=== PATIENT | male | born 1965 | race Caucasian/White ===

== ENCOUNTER 2023-08-13 10:52 | Emergency (ER) | payer SELFPAY ==
[2023-08-13] VITALS (36 sets, daily range): BP systolic 117–153; BP diastolic 68–99; PULSE 57–86; TEMP 36.4; O2SAT 97–100; BMI 41.3
--- NOTE | 2023-08-13 11:10 | XR_ITS ---
The [address] [address] Patient Name: LAURITA BUSTAMANTE MRN: [id number] date: 1965 Sex: M Assigned Patient Location: ED.MAIN Current Patient Location: ER Accession/Order Number: [id number] Exam Date: 08/13/2023 11:45 Report Date: 08/13/2023 13:00 At the request of: LD CHILDRESS Procedure: XR chest 1V EXAM: XR chest 1V 08/13/2023. COMPARISON STUDY: None FINDINGS: Upright AP lordotic type image was obtained of this severely obese patient. HISTORY: Edema COMPARISON: None. XR/XR chest 1V IMPRESSION: 1. Severe morbid obesity. Heart size is top normal. 2. Lung curry are grossly clear with no dense consolidation, effusion, edema, failure or pneumothorax within limits of study. No acute osseous abnormality otherwise noted. Electronically authenticated by: BRANDON CORREA Date: 08/13/2023 13:00
--- NOTE | 2023-08-13 11:25 | CT_ITS ---
The [address] [address] Patient Name: LAURITA BUSTAMANTE MRN: [facility]:[id number] date: 1965 Sex: M Assigned Patient Location: ER Current Patient Location: ER Accession/Order Number: [id number] Exam Date: 08/13/2023 12:46 Report Date: 08/13/2023 13:47 At the request of: LD CHILDRESS Procedure: CT abdomen pelvis w con EXAM: CT abdomen pelvis w con 08/13/2023. HISTORY: Ascites COMPARISON STUDY: None TECHNIQUE: 3 mm sections were obtained from the lung bases through the pubic symphysis following administration of intravenous contrast. Coronal and sagittal reconstructed images were obtained CT ABDOMEN: Patient is severely obese. Small left-sided pleural effusion and moderate-sized right pleural effusion with adjacent compressive atelectatic changes noted. Heart size is top normal. Small reactive bilateral mildly prominent epicardial nodes are evident. Mass in volume of ascites and severe anasarca noted. Cirrhotic change of the liver without discrete mass noted. Spleen measures 15.8 cm superior to inferior. The right hepatic lobe measures 12.9 cm superior to inferior. Portal, splenic and mesenteric veins are patent. Distal esophageal and perigastric varices as well as additional intra-abdominal collateral formation is noted. The gallbladder, pancreas, adrenals and kidneys demonstrate no acute abnormality. A midpole right renal cyst posteriorly measures 10 mm. Aorta is nonaneurysmal. Mild colonic diverticular disease is noted. Mild gaseous distention of the transverse segment of the colon noted. Negative for appendicitis or diverticulitis. Prominent perisplenic varices are present. CT PELVIS: Urinary bladder, prostate and seminal vesicles demonstrate no acute abnormality. No significantly enlarged adenopathy noted. Subacute fracture deformities of the anterior right fourth through sixth ribs as well as involving lateral fifth and ninth ribs noted. Multilevel thoracic and lumbar Schmorl's node formation noted. Prior removal of intramedullary william from proximal left femur with old healed fracture deformity partially visualized. CT/CT abdomen pelvis w con IMPRESSION: 1. Bilateral pleural effusions, right larger than left with adjacent compressive atelectasis. 2. Massive volume of ascites and severe anasarca noted. 3. Cirrhotic change of liver without discrete mass. 4. Stigmata of portal hypertension with distal esophageal and perigastric as well as perisplenic varices and additional abdominal collaterals noted. Mild splenomegaly. 5. Nonobstructive bowel pattern with mild diverticular disease. 6. Subacute healing nondisplaced multiple right-sided rib fractures as described Electronically authenticated by: BRANDON CORREA Date: 08/13/2023 13:47
--- NOTE | 2023-08-13 11:25 | CT_ITS ---
[address] [address] Patient Name: LAURITA BUSTAMANTE MRN: [id number] date: 1965 Sex: M Assigned Patient Location: ER Current Patient Location: ER Accession/Order Number: [id number] Exam Date: 08/13/2023 12:46 Report Date: 08/13/2023 13:36 At the request of: LD CHILDRESS Procedure: CT angio chest EXAMINATION: CT angio chest INDICATION: Increased bilateral leg swelling and wheezing COMPARISON: None. TECHNIQUE: Following the administration of intravenous contrast, helical imaging of the chest was performed using PE protocol. Multiplanar reformatted images and MIP sequences were reconstructed. Dose reduction techniques were achieved by using: automated exposure control and/or adjustment of mA and /or kV according to patient size and/or use of iterative reconstruction technique. FINDINGS: TUBES AND LINES: None. LOWER NECK: No significant abnormality. CHEST: AIRWAYS, LUNGS AND PLEURA: Patent central airways. Large right and small left pleural effusions. Bilateral lower lobe compressive atelectasis. No acute infiltrative process. No suspicious pulmonary nodules. No pneumothorax. LYMPH NODES: No thoracic adenopathy. ESOPHAGUS: Normal esophagus. GREAT VESSELS: Nondiagnostic study for PE due to minimal opacification of the pulmonary arteries. Normal caliber main pulmonary artery. Nonaneurysmal thoracic aorta. No aortic dissection. HEART AND PERICARDIUM: The heart is normal in size. Mild coronary artery calcifications. No pericardial effusion. UPPER ABDOMEN: Abdominal findings reported separately. MUSCULOSKELETAL: SOFT TISSUES: Anasarca. BONES: No acute osseous abnormality or suspicious osseous lesion. OSULLIVAN: (series:images) CT/CT angio chest IMPRESSION: 1. Nondiagnostic study for PE due to minimal opacification of the pulmonary arteries. 2. Large right and small left pleural effusions. Electronically authenticated by: SHIRLEY QUINONES Date: 08/13/2023 13:36
--- NOTE | 2023-08-13 11:29 | ED_ITS ---
HPI HPI - General Adult General Chief complaint: Weakness Stated complaint: swelling legs Time Seen by Provider: 08/13/23 11:10 Source: patient Mode of arrival: ambulance Limitations: no limitations History of Present Illness HPI narrative: This patient was brought to us by ambulance. He says he could not get out of bed. He says his legs are too swollen to have any did not have the strength to stand up. He is somewhat of a limited historian. 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 He states he is known to have diabetes and takes metformin but no insulin. He used to drink when he was much younger but did not drink heavily and that was many many many years ago. He has no known history of liver disease ,lung disease or heart disease he has been feeling bad for about 3 weeks when he noticed that his belly was getting big and his legs were getting swollen. He gets short of breath pretty easily. He does not use any tobacco products and never has. He has not had a heart catheterization or pulmonary function test in the past. He says his appetite is good and he has been eating normally. He is not on any antibiotics. His only home meds include metformin. 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 His sister sees him occasionally and she is here with him today. He admits to swelling from his toes all the way up to his scrotum. He denies any specific problems urinating Related Data Home Medications ?Medication ?Instructions ?Recorded ?Confirmed metformin 500 mg tablet 500 mg PO DAILY 08/13/23 08/13/23 Allergies Allergy/AdvReac Type Severity Reaction Status Date / Time Penicillins AdvReac Mild Verified 08/13/23 10:59 Opioid HPI Opioid Management Most Recent Opioid Data: No Data to Display Exam Narrative Exam Narrative: This is a 57-year-old male he is quite obese but also has what appears to be ascites on his abdominal exam. He appears well but older than stated age. His vital signs are noted. His pulse oximetry is 100% he is not in labor distress. He does not appear to be having severe pain but he does appear ill. On HEENT examination there is no evidence of scleral icterus or anemia. Mouth and oral cavity are normal. There is no respiratory distress or stridor air exchange is good. Phonation is normal. Examination of his chest discloses no obvious murmur. No wheezing no respiratory distress. Heart sounds are normal with no murmur as noted. He is not profoundly tachycardic his pulse is approximately 80. His abdomen is morbidly obese and felt to hold profound amount of ascites. Has no guarding or rebound or rigidity. Genitalia discloses massive ascites from his ankles up to his scrotum. We could not identify the shaft of the penis. With palpitation I was able to palpate with my digital finger the glans of the penis but could not pass a Carrillo catheter to determine the presence of urinary retention. Scrotum is massively edematous there is no necrosis noted. Hygiene is not good in this area and this appears to be chronic in nature. Extremities show 3-4+ edema from distal ankle to the scrotum area. They are warm with no cyanosis. He has full movement with no gross motor deficit but they are extremely edematous and feel very heavy to him. Neurological examination shows him to be intact cognition mentation normal cranial nerves II through XII are normal. He does not have a headache. Constitutional Vital Signs, click to edit/add: Last Vital Signs Temp 97.6 F 08/13/23 10:59 Pulse 75 08/13/23 14:00 Resp 16 08/13/23 14:00 BP 127/68 08/13/23 13:30 Pulse Ox 100 08/13/23 13:40 O2 Del Method Room Air 08/13/23 10:59 Course Vital Signs Vital signs: Vital Signs Blood Pressure 119/99 H 08/13/23 10:54 Temperature 97.6 F 08/13/23 10:59 Pulse Rate 75 08/13/23 14:00 Respiratory Rate 16 08/13/23 14:00 Blood Pressure 127/68 08/13/23 13:30 Pulse Oximetry 100 08/13/23 13:40 Oxygen Delivery Method Room Air 08/13/23 10:59 Medical Decision Making [facility] Narrative Medical decision making narrative: On arrival here we asked him to void and then we scanned his bladder. Reading we received was 1300 cc of retained urine. We did order a Carrillo catheter by the nursing staff holiday however they were unable to pass it. I then attempted myself and as noted above in the physical examination it was difficult due to the ascites to locate the urethral meatus and the penis because of the profound amount of swelling and ascites in this area. This patient's laboratory testing shows mild elevation potassium. Also there is marked irregularities of his ammonia level and liver function testing is abnormal as well. D-dimer was elevated so we will entertain a CTA of his chest although I believe his primary problem will be liver disease and lieu of his ascites and liver function testing. In fact his CT scan of the chest shows bilateral pleural effusions. The CT of the abdomen shows findings consistent with portal hypertension severe amount of ascites bilateral pleural effusions. There is no pericardial effusion. There is no liver masses delineated. There was no distention of his bladder, and is felt that the bladder scan reading is due to the profound ascites. Incidentally I did speak with Dr. Salazar Lynn urologist and he agrees with that assessment of it being due to the ascites and not urinary retention. When the liver testing and CTs were completed I contacted the hospitals in [place] as I felt he needed to be transferred to that facility to address the severe problems. Full report and disclosure of the laboratory testing CT imaging was made. We will start diuresis here in the ER. Lab Data Labs: Lab Results 08/13/23 08/13/23 Range/Units 11:40 14:02 WBC 10.9 (4.0-11.0) 10^3/uL RBC 3.95 L (4.70-6.10) 10^6/uL Hgb 14.0 (14.0-18.0) g/dL Hct 41.8 L (42.0-54.0) % MCV 105.8 H (80.0-94.0) fL MCH 35.4 H (25.9-34.0) pg MCHC 33.5 (29.9-35.2) g/dL RDW 14.8 (11.0-15.0) % Plt Count 153 (150-450) 10^3/uL MPV 9.4 L (9.5-13.5) fL Neut % (Auto) 65.0 (43.0-75.0) % Lymph % (Auto) 12.2 L (20.5-60.0) % [place] % (Auto) 13.3 H (1.7-12.0) % Eos % (Auto) 7.1 H (0.9-7.0) % Baso % (Auto) 1.4 (0.2-2.0) % Neut # (Auto) 7.1 H (1.4-6.5) 10^3/uL Lymph # (Auto) 1.3 (1.2-3.8) 10^3/uL Gladwin # (Auto) 1.5 H (0.3-0.8) 10^3/uL Eos # (Auto) 0.8 H (0.0-0.7) 10^3/uL Baso # (Auto) 0.2 H (0.0-0.1) 10^3/uL Abs Immat Gran (auto) 0.11 H (0.00-0.03) 10^3/uL Imm/Tot Granulo (auto) 1.0 H (0.0-0.5) % PT 13.5 H (9.0-11.6) sec INR 1.29 D-Dimer 5.35 H* (<=0.59) mg/L FEU VBG pH 7.404 (7.330-7.430) VBG pCO2 37.1 L (40.0-52.0) mmHg Sodium 136 (136-145) mmol/L Potassium 5.2 H (3.5-5.1) mmol/L Chloride 103 (98-107) mmol/L Carbon Dioxide 24.0 (21.0-32.0) mmol/L Anion Gap 14.2 BUN 37.0 H (7.0-18.0) mg/dL Creatinine 1.34 H (0.70-1.30) mg/dL Est GFR ( Amer) >60 (>=60) Est GFR (Non-Af Amer) 55 L (>=60) BUN/Creatinine Ratio 27.6 Glucose 103 (74-106) mg/dL Lactate 3.0 H* (0.4-2.0) mmol/L Calcium 8.7 (8.5-10.1) mg/dL Total Bilirubin 4.8 H (0.2-1.0) mg/dL AST 84 H (15-37) U/L ALT 52 (16-63) U/L Alkaline Phosphatase 287 H (46-116) U/L Ammonia 87 H* (11-32) umol/L Troponin I High Sens 4.9 (4.0-76.1) pg/mL NT-Pro-B Natriuret Pep 190.0 (<=900.0) pg/mL Total Protein 6.6 (6.4-8.2) g/dL Albumin 2.5 L (3.4-5.0) g/dL Globulin 4.1 g/dL Albumin/Globulin Ratio 0.6 Lipase 91.0 H (16.0-77.0) U/L Discharge Plan Discharge Chief Complaint: Weakness Clinical Impression: 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 alcohol Patient Disposition: [facility] Time of Disposition Decision: 15:08 Condition: Fair Prescriptions / Home Meds: No Action metformin 500 mg tablet 500 mg PO DAILY Print Language: Turkmen Referrals: JANNA LEBRON [Primary Care Provider] - 1 week
[2023-08-13 11:49] LABS: PCO2 VBG 37.1 mmHg (40.0-52.0); pH VBG 7.404 (7.330-7.430)
[2023-08-13 11:51] LABS: Basophils Absolute Auto 0.2 10^3/uL (0.0-0.1); Basophils Percent Auto 1.4 % (0.2-2.0); Eosinophils Absolute Auto 0.8 10^3/uL (0.0-0.7); Eosinophils Percent Auto 7.1 % (0.9-7.0); Hematocrit 41.8 % (42.0-54.0); Immature Granulocytes Abs Auto 0.11 10^3/uL (0.00-0.03); Lymphocytes Absolute Auto 1.3 10^3/uL (1.2-3.8); Lymphocytes Percent Auto 12.2 % (20.5-60.0); Mean Corpuscular HGB Conc 33.5 g/dL (29.9-35.2); Mean Corpuscular Hemoglobin 35.4 pg (25.9-34.0); Mean Corpuscular Volume 105.8 fL (80.0-94.0); Mean Platelet Volume 9.4 fL (9.5-13.5); Monocytes Absolute Auto 1.5 10^3/uL (0.3-0.8); Monocytes Percent Auto 13.3 % (1.7-12.0); Neutrophils Absolute Auto 7.1 10^3/uL (1.4-6.5); Platelet Count 153 10^3/uL (150-450); Red Blood Count 3.95 10^6/uL (4.70-6.10); Red Cell Distribution Width 14.8 % (11.0-15.0); White Blood Count 10.9 10^3/uL (4.0-11.0)
[2023-08-13 12:15] LABS: Alanine Aminotransferase 52 U/L (16-63); Albumin Globulin Ratio 0.6; Albumin Level 2.5 g/dL (3.4-5.0); Alkaline Phosphatase 287 U/L (46-116); Anion Gap 14.2; Aspartate Amino Transferase 84 U/L (15-37); BUN Creatinine Ratio 27.6; Bilirubin Total 4.8 mg/dL (0.2-1.0); Calcium 8.7 mg/dL (8.5-10.1); Chloride 103 mmol/L (98-107); Estimated GFR (African America >60 (>=60); Estimated GFR (Non-African Ame 55 (>=60); Globulin 4.1 g/dL; Glucose 103 mg/dL (74-106); Potassium 5.2 mmol/L (3.5-5.1); Sodium 136 mmol/L (136-145); Total Protein 6.6 g/dL (6.4-8.2); Troponin I High Sensitivity 4.9 pg/mL (4.0-76.1)
[2023-08-13 12:27] LABS: INR 1.29; Prothrombin Time 13.5 sec (9.0-11.6)
[2023-08-13 12:31] LABS: D Dimer 5.35 mg/L FEU (<=0.59)
--- NOTE | 2023-08-13 13:53 | ECG_ITS ---
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
[2023-08-13 14:21] LABS: Ammonia 87 umol/L (11-32)
[2023-08-13] MEDS: BUMETANIDE 1 MG/4 ML VIAL 2 MG IVP (16:01)
== END 2023-08-13 16:23 | disposition short-term general hospital (02) ==
PROVIDERS: Emergency Provider Emergency Medicine Emergency Medical Services; PCP Internal Medicine
DX: K74.60 Unspecified cirrhosis of liver (principal); E11.9 Type 2 diabetes mellitus without complications; Z79.84 Long term (current) use of oral hypoglycemic drugs; E66.01 Morbid (severe) obesity due to excess calories; R79.1 Abnormal coagulation profile; Z68.41 Body mass index [BMI] 40.0-44.9, adult
CPT/HCPCS: 36415; 51798; 71045; 71275; 74177; 80053; 82140; 82800; 83605; 83690; 83880; 84484; 85025; 85378; 85610; 87040; 93005; 96374; 99285; Q9967

== ENCOUNTER 2023-09-18 19:50 | Inpatient (IN) | payer MEDICAID, SELFPAY ==
[2023-09-18] VITALS (17 sets, daily range): BP systolic 102–149; BP diastolic 56–92; PULSE 75–88; TEMP 36.9; O2SAT 97–100; BMI 44.3
--- NOTE | 2023-09-18 20:10 | PC.NURSE ---
Pain and swelling to left lower leg, reports pain from foot to thigh. Skin pale, no redness noted, pulse present posterior with doppler.
--- NOTE | 2023-09-18 20:13 | US_ITS ---
The [address] [address] Patient Name: LAURITA BUSTAMANTE MRN: [id number] date: 1965 Sex: M Assigned Patient Location: ER Current Patient Location: ER Accession/Order Number: [id number] Exam Date: 09/18/2023 20:55 Report Date: 09/18/2023 23:36 At the request of: ALEENA DONOVAN Procedure: US arterial duplex LE LT EXAM: US arterial duplex LE LT HISTORY: diminished pulses, cold foot COMPARISON: None. TECHNIQUE: Ultrasound examination of the left lower extremity. Vascular ultrasound with Doppler evaluation. FINDINGS: Triphasic waveforms throughout the left lower extremity. No evidence of stenosis. Subcutaneous soft tissue edema of the left lower extremity. Common femoral vein: 151 cm/s Superficial femoral artery 125 cm/s Distal superficial femoral artery 98 cm/s Popliteal artery 43 cm/s Anterior tibial artery 41 cm/s Proximal posterior tibial artery 73 cm/s Distal posterior tibial artery: 84 cm/s US/US arterial duplex LE LT IMPRESSION: Triphasic waveforms throughout the left lower extremity. No evidence of stenosis. There is subcutaneous soft tissue edema of the left lower extremity. Electronically authenticated by: SABINA NOVAK Date: 09/18/2023 23:36
--- NOTE | 2023-09-18 20:13 | US_ITS ---
The [address] [address] Patient Name: LAURITA BUSTAMANTE MRN: [id number] date: 1965 Sex: M Assigned Patient Location: ER Current Patient Location: ER Accession/Order Number: [id number] Exam Date: 09/18/2023 20:55 Report Date: 09/18/2023 23:32 At the request of: ALEENA DONOVAN Procedure: US venous doppler LE LT EXAM: US venous doppler LE LT HISTORY: LLE swelling COMPARISON: None. TECHNIQUE: Ultrasound examination of the left lower extremity for DVT evaluation. FINDINGS: No deep venous thrombosis. The distal portion of the femoral vein and the calf veins are not well seen due to overlying edema. Subcutaneous soft tissue edema. US/US venous doppler LE LT IMPRESSION: No deep venous thrombosis. Electronically authenticated by: SABINA NOVAK Date: 09/18/2023 23:32
--- NOTE | 2023-09-18 20:18 | ED.GENADUL1 ---
Documented by User: LOGAN Burton 09/26/23 12:57 HPI HPI - General Adult General Chief complaint: Extremity Problem, Nontraumatic Stated complaint: SWELLING LEGS Time Seen by Provider: 09/18/23 20:05 Source: patient Mode of arrival: ambulance Limitations: no limitations History of Present Illness HPI narrative: 57-year-old male, history of Reyes, presents to the emergency department with complaint of left lower extremity swelling. Patient states onset over this past evening. Recent admission to [facility] for evaluation and treatment of the REYES. Patient is a diabetic. 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 Denies feeling any pain. Patient denies chest pain, shortness of breath. Quality:?swelling Severity:?moderate Timing:?tonight Context: Normal setting and activity? Modifying factors:?none Associated symptoms: as above Related Data Home Medications ?Medication ?Instructions ?Recorded ?Confirmed metformin 500 mg tablet 500 mg PO BID 08/13/23 09/19/23 acetaminophen 325 mg tablet 650 mg PO Q6H PRN fever or pain 09/18/23 09/18/23 carboxymethylcellulose sodium 0.5 2 drp ophthalmic (eye) Q8H PRN dry 09/18/23 09/19/23 % eye drops in a dropperette eye(s) (Lubricant Eye Drops) cholecalciferol (vitamin D3) 1,250 50,000 unit PO QWEEK 09/18/23 09/19/23 mcg (50,000 unit) capsule cyclobenzaprine 5 mg tablet 5 mg PO Q8H PRN muscle spasm 09/18/23 09/18/23 folic acid 1 mg tablet 5 mg PO DAILY 09/18/23 09/19/23 furosemide 40 mg tablet 40 mg PO DAILY 09/18/23 09/18/23 lidocaine 4 % topical patch 1 patch topical Q24H 09/18/23 09/18/23 melatonin 3 mg tablet 3 mg PO DAILY PRN sleep 09/18/23 09/18/23 rivaroxaban 15 mg tablet (Xarelto) 15 mg PO BID 09/18/23 09/19/23 spironolactone 100 mg tablet 100 mg PO DAILY 09/18/23 09/18/23 polyethylene glycol 3350 17 gram 17 g PO DAILY 09/19/23 09/19/23 oral powder packet Allergies Allergy/AdvReac Type Severity Reaction Status Date / Time Penicillins AdvReac Mild Verified 09/20/23 11:45 Opioid HPI Opioid Management Most Recent Opioid Data: Last Pain Scale 9 09/19/23 20:36 Last Pain Assessment 09/21/23 10:34 Last Pain Assessment 09/21/23 22:12 Last ORT Total Score 0 09/19/23 01:25 Last ORT Risk Category Low Risk 09/19/23 01:25 Review of Systems ROS Narrative CONST: + fatigue. Denies activity change CV: Denies chest pain, palpitations Pulmonary: Denies shortness of breath, cough MS: + LE swelling. SKIN: + color change NEURO: + numbness (chronic). Denies focal weakness PFSH FOR[facility] Medical History (Updated 09/21/23 @ 10:00 by Shaikh Florecita MD) Hyperlipidemia ?E78.5 - Hyperlipidemia, unspecified (ICD-10) DVT (deep venous thrombosis) ?I82.409 - Acute embolism and thrombosis of unspecified deep veins of unspecified lower extremity (ICD-10) 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 alcohol ?K74.60 - Unspecified cirrhosis of liver (ICD-10) Social History Highest level of school completed/degree received: high school graduate Do you think of yourself as: straight/heterosexual Gender Identity: male Exam Narrative Exam Narrative: Vital signs noted Nurses notes reviewed CONST: Nontoxic, well appearing, well nourished, in no distress.? HENT: normocephalic, atraumatic. CV: Able to Doppler left PT pulse. Unable to Doppler DP MS: The left leg appears little bit more edematous compared to the right. It is a little more pale. The foot only is cooler to touch compared to the right foot. Tib-fib region similar in temperature. Patient has sensory deficits to both lower extremity secondary to neuropathy. NEURO: Sensory intact throughout and distal to the injury SKIN: intact, warm, dry.? No abrasion, laceration PSYCHIATRIC: normal mood, affect Constitutional Vital Signs, click to edit/add: Last Vital Signs Temp 97.9 F 09/21/23 19:25 Pulse 73 09/21/23 22:13 Resp 20 09/21/23 20:07 BP 125/64 09/21/23 21:08 Pulse Ox 99 09/21/23 19:25 O2 Del Method Room Air 09/21/23 19:25 Course Vital Signs Vital signs: Vital Signs Blood Pressure 109/66 09/18/23 19:55 Temperature 97.9 F 09/21/23 19:25 Pulse Rate 73 09/21/23 22:13 Respiratory Rate 20 09/21/23 20:07 Blood Pressure 125/64 09/21/23 21:08 Pulse Oximetry 99 09/21/23 19:25 Oxygen Delivery Method Room Air 09/21/23 19:25 Medical Decision Making MDM Narrative Medical decision making narrative: This is a pleasant 57-year-old male presents to the emergency department via EMS with concern about left lower extremity swelling. Patient with recent hospital admission due to complications from REYES. He is on Xarelto. He voices no other complaints. On arrival, afebrile, vital signs stable. On exam, nontoxic, chronically ill-appearing patient, jaundiced, in no obvious distress. He does have some discoloration, pale left lower extremity. His left foot is cooler compared to the right. We were able to Doppler pulses to the left PT. Unable to clear detect DP pulses. Labs reveal patient to be anemic at 7.2 and 22.3. He was 14 and 41.8 on 08/13/2023. He has a white count of 12.6. No thrombocytopenia. PTT was 79.8 likely result from his cirrhosis. His INR 4.01. PTT was 37. Patient appears to have an NAHOMI with BUN of 45 and creatinine 2.03. With low H&H, rectal exam performed. Whitish-yellowish material on glove. Sent to the lab for occult blood analysis. PLEASE NOTE: Portions of the medical record may have been produced using electronic operations developer and may contain errors with respect to translation of words which may not have been identified prior to finalization of the chart. Lab Data Lab results reviewed: Yes I reviewed the patient's lab results Labs: Lab Results 09/18/23 09/18/23 Range/Units 20:10 22:15 WBC 12.6 H (4.0-11.0) 10^3/uL RBC 1.98 L (4.70-6.10) 10^6/uL Hgb 7.2 L (14.0-18.0) g/dL Hct 22.3 L* (42.0-54.0) % MCV 112.6 H (80.0-94.0) fL MCH 36.4 H (25.9-34.0) pg MCHC 32.3 (29.9-35.2) g/dL RDW 19.8 H (11.0-15.0) % Plt Count 141 L (150-450) 10^3/uL MPV 9.9 (9.5-13.5) fL Neut % (Auto) 71.2 (43.0-75.0) % Lymph % (Auto) 9.4 L (20.5-60.0) % [place] % (Auto) 11.1 (1.7-12.0) % Eos % (Auto) 3.6 (0.9-7.0) % Baso % (Auto) 1.1 (0.2-2.0) % Neut # (Auto) 9.0 H (1.4-6.5) 10^3/uL Lymph # (Auto) 1.2 (1.2-3.8) 10^3/uL [place] # (Auto) 1.4 H (0.3-0.8) 10^3/uL Eos # (Auto) 0.5 (0.0-0.7) 10^3/uL Baso # (Auto) 0.1 (0.0-0.1) 10^3/uL Abs Immat Gran (auto) 0.45 H (0.00-0.03) 10^3/uL Imm/Tot Granulo (auto) 3.6 H (0.0-0.5) % PT 37.0 H (9.0-11.6) sec INR 4.01 APTT 79.8 H* (22.3-36.2) sec Sodium 137 (136-145) mmol/L Potassium 4.9 (3.5-5.1) mmol/L Chloride 102 (98-107) mmol/L Carbon Dioxide 22.8 (21.0-32.0) mmol/L Anion Gap 17.1 BUN 45.0 H (7.0-18.0) mg/dL Creatinine 2.03 H (0.70-1.30) mg/dL Est GFR ( Amer) 41 L (>=60) Est GFR (Non-Af Amer) 34 L (>=60) BUN/Creatinine Ratio 22.2 Glucose 134 H (74-106) mg/dL Calcium 8.6 (8.5-10.1) mg/dL Total Bilirubin 9.1 H (0.2-1.0) mg/dL AST 47 H (15-37) U/L ALT 19 (16-63) U/L Alkaline Phosphatase 122 H (46-116) U/L Total Protein 5.7 L (6.4-8.2) g/dL Albumin 3.4 (3.4-5.0) g/dL Globulin 2.3 g/dL Albumin/Globulin Ratio 1.5 Stool Occult Blood Negative Imaging Data Venous duplex: Radiologist's impression: ITS Impressions Duplex Scan Lower Extremity Artery 09/18/23 20:13 IMPRESSION: Triphasic waveforms throughout the left lower extremity. No evidence of stenosis. There is subcutaneous soft tissue edema of the left lower extremity. Electronically authenticated by: SABINA NOVAK Date: 09/18/2023 23:36 Venous Doppler Study 09/18/23 20:13 IMPRESSION: No deep venous thrombosis. Electronically authenticated by: SABINA NOVAK Date: 09/18/2023 23:32 Discharge Plan Discharge Chief Complaint: Extremity Problem, Nontraumatic Clinical Impression: Anemia Qualifiers: Anemia type: other cause Other causes of anemia: chronic disease, other Qualified Code(s): D63.8 - Anemia in other chronic diseases classified elsewhere Patient Disposition: Admitted As Inpatient Time of Disposition Decision: 00:26 Condition: Fair Discharge Date/Time: 09/19/23 01:25 Documented by User: Bill Meyer MD 09/19/23 01:12 HPI HPI - General Adult General Chief complaint: Extremity Problem, Nontraumatic Stated complaint: SWELLING LEGS Time Seen by Provider: 09/18/23 20:05 Related Data Home Medications ?Medication ?Instructions ?Recorded ?Confirmed metformin 500 mg tablet 500 mg PO BID 08/13/23 09/19/23 acetaminophen 325 mg tablet 650 mg PO Q6H PRN fever or pain 09/18/23 09/18/23 carboxymethylcellulose sodium 0.5 2 drp ophthalmic (eye) Q8H PRN dry 09/18/23 09/19/23 % eye drops in a dropperette eye(s) (Lubricant Eye Drops) cholecalciferol (vitamin D3) 1,250 50,000 unit PO QWEEK 09/18/23 09/19/23 mcg (50,000 unit) capsule cyclobenzaprine 5 mg tablet 5 mg PO Q8H PRN muscle spasm 09/18/23 09/18/23 folic acid 1 mg tablet 5 mg PO DAILY 09/18/23 09/19/23 furosemide 40 mg tablet 40 mg PO DAILY 09/18/23 09/18/23 lidocaine 4 % topical patch 1 patch topical Q24H 09/18/23 09/18/23 melatonin 3 mg tablet 3 mg PO DAILY PRN sleep 09/18/23 09/18/23 rivaroxaban 15 mg tablet (Xarelto) 15 mg PO BID 09/18/23 09/19/23 spironolactone 100 mg tablet 100 mg PO DAILY 09/18/23 09/18/23 polyethylene glycol 3350 17 gram 17 g PO DAILY 09/19/23 09/19/23 oral powder packet Allergies Allergy/AdvReac Type Severity Reaction Status Date / Time Penicillins AdvReac Mild Verified 09/20/23 11:45 Opioid HPI Opioid Management Most Recent Opioid Data: Last Pain Scale 9 09/19/23 20:36 Last Pain Assessment 09/21/23 10:34 Last Pain Assessment 09/21/23 22:12 Last ORT Total Score 0 09/19/23 01:25 Last ORT Risk Category Low Risk 09/19/23 01:25 [facility] Medical History (Updated 09/21/23 @ 10:00 by Shaikh Florecita MD) Hyperlipidemia ?E78.5 - Hyperlipidemia, unspecified (ICD-10) DVT (deep venous thrombosis) ?I82.409 - Acute embolism and thrombosis of unspecified deep veins of unspecified lower extremity (ICD-10) 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 alcohol ?K74.60 - Unspecified cirrhosis of liver (ICD-10) Social History Highest level of school completed/degree received: high school graduate Do you think of yourself as: straight/heterosexual Gender Identity: male Exam Constitutional Vital Signs, click to edit/add: Last Vital Signs Temp 97.9 F 09/21/23 19:25 Pulse 73 09/21/23 22:13 Resp 20 09/21/23 20:07 BP 125/64 09/21/23 21:08 Pulse Ox 99 09/21/23 19:25 O2 Del Method Room Air 09/21/23 19:25 Course Vital Signs Vital signs: Vital Signs Blood Pressure 109/66 09/18/23 19:55 Temperature 97.9 F 09/21/23 19:25 Pulse Rate 73 09/21/23 22:13 Respiratory Rate 20 09/21/23 20:07 Blood Pressure 125/64 09/21/23 21:08 Pulse Oximetry 99 09/21/23 19:25 Oxygen Delivery Method Room Air 09/21/23 19:25 Medical Decision Making MDM Narrative Medical decision making narrative: This is a pleasant 57-year-old male presents to the emergency department via EMS with concern about left lower extremity swelling. Patient with recent hospital admission due to complications from REYES. He is on Xarelto. He voices no other complaints. On arrival, afebrile, vital signs stable. On exam, nontoxic, chronically ill-appearing patient, jaundiced, in no obvious distress. He does have some discoloration, pale left lower extremity. His left foot is cooler compared to the right. We were able to Doppler pulses to the left PT. Unable to clear detect DP pulses. Labs reveal patient to be anemic at 7.2 and 22.3. He was 14 and 41.8 on 08/13/2023. He has a white count of 12.6. No thrombocytopenia. PTT was 79.8 likely result from his cirrhosis. His INR 4.01. PTT was 37. Patient appears to have an NAHOMI with BUN of 45 and creatinine 2.03. With low H&H, rectal exam performed. Whitish-yellowish material on glove. Sent to the lab for occult blood analysis. PLEASE NOTE: Portions of the medical record may have been produced using electronic operations developer and may contain errors with respect to translation of words which may not have been identified prior to finalization of the chart. JK 12:30am venous Doppler and arterial duplex both showed no acute findings. His hemoglobin is low at 7.2. He reports that he was transfused at [facility] but they did not know why he was anemic. His occult blood tonight is negative. He is hemodynamically stable but his hemoglobin will likely drop and he may need a blood transfusion in the near future. Apparently [facility] wanted him to go to a nursing facility but he refused to do so and has not been able to take care of himself at home. He had been released from their on September 15. He is agreeable to being admitted to the hospital. I have requested the discharge summary from [facility]. Differential Diagnosis Differential Diagnosis: DVT, arterial compromise, GI bleed, anemia Lab Data Labs: Lab Results 09/18/23 09/18/23 Range/Units 20:10 22:15 WBC 12.6 H (4.0-11.0) 10^3/uL RBC 1.98 L (4.70-6.10) 10^6/uL Hgb 7.2 L (14.0-18.0) g/dL Hct 22.3 L* (42.0-54.0) % MCV 112.6 H (80.0-94.0) fL MCH 36.4 H (25.9-34.0) pg MCHC 32.3 (29.9-35.2) g/dL RDW 19.8 H (11.0-15.0) % Plt Count 141 L (150-450) 10^3/uL MPV 9.9 (9.5-13.5) fL Neut % (Auto) 71.2 (43.0-75.0) % Lymph % (Auto) 9.4 L (20.5-60.0) % [place] % (Auto) 11.1 (1.7-12.0) % Eos % (Auto) 3.6 (0.9-7.0) % Baso % (Auto) 1.1 (0.2-2.0) % Neut # (Auto) 9.0 H (1.4-6.5) 10^3/uL Lymph # (Auto) 1.2 (1.2-3.8) 10^3/uL [place] # (Auto) 1.4 H (0.3-0.8) 10^3/uL Eos # (Auto) 0.5 (0.0-0.7) 10^3/uL Baso # (Auto) 0.1 (0.0-0.1) 10^3/uL Abs Immat Gran (auto) 0.45 H (0.00-0.03) 10^3/uL Imm/Tot Granulo (auto) 3.6 H (0.0-0.5) % PT 37.0 H (9.0-11.6) sec INR 4.01 APTT 79.8 H* (22.3-36.2) sec Sodium 137 (136-145) mmol/L Potassium 4.9 (3.5-5.1) mmol/L Chloride 102 (98-107) mmol/L Carbon Dioxide 22.8 (21.0-32.0) mmol/L Anion Gap 17.1 BUN 45.0 H (7.0-18.0) mg/dL Creatinine 2.03 H (0.70-1.30) mg/dL Est GFR ( Amer) 41 L (>=60) Est GFR (Non-Af Amer) 34 L (>=60) BUN/Creatinine Ratio 22.2 Glucose 134 H (74-106) mg/dL Calcium 8.6 (8.5-10.1) mg/dL Total Bilirubin 9.1 H (0.2-1.0) mg/dL AST 47 H (15-37) U/L ALT 19 (16-63) U/L Alkaline Phosphatase 122 H (46-116) U/L Total Protein 5.7 L (6.4-8.2) g/dL Albumin 3.4 (3.4-5.0) g/dL Globulin 2.3 g/dL Albumin/Globulin Ratio 1.5 Stool Occult Blood Negative Imaging Data Venous duplex: Radiologist's impression: ITS Impressions Duplex Scan Lower Extremity Artery 09/18/23 20:13 IMPRESSION: Triphasic waveforms throughout the left lower extremity. No evidence of stenosis. There is subcutaneous soft tissue edema of the left lower extremity. Electronically authenticated by: SABINA NOVAK Date: 09/18/2023 23:36 Venous Doppler Study 09/18/23 20:13
[2023-09-18 20:28] LABS: Basophils Absolute Auto 0.1 10^3/uL (0.0-0.1); Basophils Percent Auto 1.1 % (0.2-2.0); Eosinophils Absolute Auto 0.5 10^3/uL (0.0-0.7); Eosinophils Percent Auto 3.6 % (0.9-7.0); Hemoglobin 7.2 g/dL (14.0-18.0); Immature Granulocytes Abs Auto 0.45 10^3/uL (0.00-0.03); Immature Granulocytes Pct Auto 3.6 % (0.0-0.5); Lymphocytes Absolute Auto 1.2 10^3/uL (1.2-3.8); Lymphocytes Percent Auto 9.4 % (20.5-60.0); Mean Corpuscular HGB Conc 32.3 g/dL (29.9-35.2); Mean Corpuscular Hemoglobin 36.4 pg (25.9-34.0); Mean Corpuscular Volume 112.6 fL (80.0-94.0); Mean Platelet Volume 9.9 fL (9.5-13.5); Monocytes Absolute Auto 1.4 10^3/uL (0.3-0.8); Monocytes Percent Auto 11.1 % (1.7-12.0); Neutrophils Percent Auto 71.2 % (43.0-75.0); Platelet Count 141 10^3/uL (150-450); Red Blood Count 1.98 10^6/uL (4.70-6.10); Red Cell Distribution Width 19.8 % (11.0-15.0); White Blood Count 12.6 10^3/uL (4.0-11.0)
[2023-09-18 20:39] LABS: Alanine Aminotransferase 19 U/L (16-63); Albumin Globulin Ratio 1.5; Albumin Level 3.4 g/dL (3.4-5.0); Alkaline Phosphatase 122 U/L (46-116); Anion Gap 17.1; Aspartate Amino Transferase 47 U/L (15-37); BUN Creatinine Ratio 22.2; Bilirubin Total 9.1 mg/dL (0.2-1.0); Calcium 8.6 mg/dL (8.5-10.1); Carbon Dioxide 22.8 mmol/L (21.0-32.0); Chloride 102 mmol/L (98-107); Estimated GFR (African America 41 (>=60); Estimated GFR (Non-African Ame 34 (>=60); Globulin 2.3 g/dL; Glucose 134 mg/dL (74-106); Hematocrit 22.3 % (42.0-54.0); Potassium 4.9 mmol/L (3.5-5.1); Sodium 137 mmol/L (136-145); Total Protein 5.7 g/dL (6.4-8.2)
[2023-09-18 20:51] LABS: INR 4.01
[2023-09-18 20:53] LABS: Partial Thromboplastin Time 79.8 sec (22.3-36.2)
[2023-09-18 23:27] LABS: Occult Blood Negative
[2023-09-19] VITALS (53 sets, daily range): BP systolic 106–138; BP diastolic 49–80; PULSE 65–89; TEMP 36.4–37; O2SAT 93–100; BMI 44.8
[2023-09-19 01:48] LABS: Hemoglobin 6.5 g/dL (14.0-18.0)
[2023-09-19] MEDS: 0.9 % SODIUM CHLORIDE 1,000 ML 60 ML IV (03:15)
[2023-09-19] MEDS: PANTOPRAZOLE SODIUM 40 MG VIAL IV (03:15)
[2023-09-19] MEDS: LIDOCAINE 2% JELLY 20 ML UR (04:12)
[2023-09-19 05:09] LABS: Basophils Absolute Auto 0.1 10^3/uL (0.0-0.1); Basophils Percent Auto 1.2 % (0.2-2.0); Eosinophils Absolute Auto 0.7 10^3/uL (0.0-0.7); Eosinophils Percent Auto 6.6 % (0.9-7.0); Immature Granulocytes Abs Auto 0.41 10^3/uL (0.00-0.03); Lymphocytes Absolute Auto 1.4 10^3/uL (1.2-3.8); Lymphocytes Percent Auto 13.3 % (20.5-60.0); Mean Corpuscular HGB Conc 32.1 g/dL (29.9-35.2); Mean Corpuscular Hemoglobin 35.6 pg (25.9-34.0); Mean Corpuscular Volume 110.7 fL (80.0-94.0); Mean Platelet Volume 9.8 fL (9.5-13.5); Monocytes Absolute Auto 1.3 10^3/uL (0.3-0.8); Neutrophils Absolute Auto 6.4 10^3/uL (1.4-6.5); Neutrophils Percent Auto 61.9 % (43.0-75.0); Platelet Count 113 10^3/uL (150-450); Red Blood Count 1.77 10^6/uL (4.70-6.10); Red Cell Distribution Width 19.3 % (11.0-15.0); White Blood Count 10.3 10^3/uL (4.0-11.0)
[2023-09-19 05:26] LABS: Prothrombin Time 30.2 sec (9.0-11.6)
[2023-09-19 05:30] LABS: Hematocrit 19.6 % (42.0-54.0); Hemoglobin 6.3 g/dL (14.0-18.0)
[2023-09-19 05:31] LABS: Ammonia 70 umol/L (11-32)
[2023-09-19 05:41] LABS: Bilirubin Urine NEGATIVE (NEGATIVE); Blood Urine TRACE-I (NEGATIVE); Clarity Urine CLEAR (CLEAR); Color Urine YELLOW (YELLOW); Glucose Urine UA NEGATIVE (NEGATIVE); Ketones Urine NEGATIVE (NEGATIVE); Leukocyte Esterase Urine TRACE (NEGATIVE); Nitrite Urine NEGATIVE (NEGATIVE); Protein Urine NEGATIVE (NEG/TRACE); Urobilinogen Urine 0.2 EU/dL (0.2-1.0)
[2023-09-19 05:42] LABS: Urine Microscopic Indicated YES
[2023-09-19 05:44] LABS: Alanine Aminotransferase 18 U/L (16-63); Albumin Globulin Ratio 1.3; Albumin Level 2.9 g/dL (3.4-5.0); Alkaline Phosphatase 131 U/L (46-116); Aspartate Amino Transferase 49 U/L (15-37); BUN Creatinine Ratio 24.6; Bilirubin Total 7.5 mg/dL (0.2-1.0); Calcium 8.2 mg/dL (8.5-10.1); Carbon Dioxide 24.4 mmol/L (21.0-32.0); Chloride 104 mmol/L (98-107); Estimated GFR (African America 46 (>=60); Estimated GFR (Non-African Ame 38 (>=60); Globulin 2.2 g/dL; Glucose 115 mg/dL (74-106); Potassium 4.4 mmol/L (3.5-5.1); Sodium 138 mmol/L (136-145); Total Protein 5.1 g/dL (6.4-8.2)
[2023-09-19 05:47] LABS: Bacteria Urine NONE SEEN #/HPF (NONE SEEN); Crystals Seen? None Seen #/HPF (None Seen); Mucus Urine TRACE (NONE SEEN); RBC Urine 0-2 #/HPF (0-2); WBC Urine 0-2 #/HPF (NONE SEEN)
[2023-09-19 05:48] LABS: Amorphous Sediment Urine FEW; Cast Seen? SEEN #/LPF (NONE SEEN); Fine Granular Casts Urine FEW; Hyaline Casts Urine FEW; Urine Culture Indicated NO; White Blood Cell Casts Urine RARE
[2023-09-19 05:49] LABS: Squamous Epithelial Cell Urine FEW #/LPF (NONE/RARE)
[2023-09-19] MEDS: PHYTONADIONE IV (08:24)
[2023-09-19] MEDS: SODIUM CHLORIDE 0.9% IV (08:24)
--- NOTE | 2023-09-19 08:40 | US_ITS ---
[address] [address] Patient Name: LAURITA BUSTAMANTE MRN: [id number] date: 1965 Sex: M Assigned Patient Location: MS Current Patient Location: [place] Accession/Order Number: [id number] Exam Date: 09/19/2023 08:41 Report Date: 09/19/2023 09:30 At the request of: NJ QUINTERO Procedure: US abdomen limited EXAMINATION: US abdomen limited HISTORY: Ascites ; cirrhosis COMPARISON: No relevant comparison available. TECHNIQUE: Transabdominal evaluation of the right upper quadrant. FINDINGS: Large amount of free fluid within all 4 quadrants of the abdomen, largest is left upper quadrant, 18.5 cm in depth. US/US abdomen limited IMPRESSION: 1. Marked abdominal ascites. Electronically authenticated by: BENITA TOLBERT Date: 09/19/2023 09:30
--- NOTE | 2023-09-19 09:40 | CM.NOTE ---
Rounds made with Dr. Bernabe, pt receiving transfusion at this time. Discussed with pt regarding plan of care and possible transfer to [place], pt was just discharged from [place] on Sat. [facility] calling for records.
--- NOTE | 2023-09-19 09:44 | XR_ITS ---
The [address] [address] Patient Name: LAURITA BUSTAMANTE MRN: [id number] date: 1965 Sex: M Assigned Patient Location: MS Current Patient Location: [place] Accession/Order Number: [id number] Exam Date: 09/19/2023 09:55 Report Date: 09/19/2023 10:45 At the request of: NJ QUINTERO Procedure: XR chest 1V EXAMINATION: XR chest 1V HISTORY: shortness of breath COMPARISON: No relevant comparison available. FINDINGS: LUNGS: Underexpanded lungs with mild opacities within mid and lower left lung obscuring the diaphragm margin. VASCULATURE: Mild cephalization bilaterally. PLEURA: No pneumothorax, effusion, or pleural thickening. CARDIAC: No cardiomegaly or cardiac silhouette abnormality. MEDIASTINUM: No visible mass or adenopathy. BONES: No fracture or visible bone lesion. OTHER: Negative. XR/XR chest 1V IMPRESSION: 1. Moderate left basilar infiltrates versus atelectasis; new since prior study. 2. Mild bilateral perihilar opacities and cephalization of the vessels; secondary to supine imaging versus mild pulmonary edema. Electronically authenticated by: BENITA TOLBERT Date: 09/19/2023 10:45
[2023-09-19] MEDS: FOLIC ACID 1 MG TABLET PO (10:16)
[2023-09-19] MEDS: ATORVASTATIN CALCIUM 20 MG TABLET PO (10:16)
[2023-09-19] MEDS: FUROSEMIDE 40 MG/4 ML VIAL 20 MG IV (10:17)
[2023-09-19 10:57] LABS: INR 1.08; Prothrombin Time 11.4 sec (9.0-11.6)
--- NOTE | 2023-09-19 11:02 | P.HP_ITS ---
<Statement entered by Shaikh Florecita MD - 09/19/23 12:01> This documentation has been reviewed and approved. Seen and examined. Case discussed with FABBY Pryor Patient admitted for anemia, volume overload/generalized anasarca. Recent prolonged hospital admission at [facility]. Obtain records. Hold Xarelto. No evidence of overt bleeding. Monitor H&H closely. Vit K for co agulopathy. Paracentesis ordered but will need to hold until more than 48 hours since last dose of Xarelto and INR is better. IV bumex alongwith midorine/albumin for volume overload/anasarca and hepatorenal syndrome. Needs close monitoring while on diuretics. Will attempt to initiate his transfer as we do not have GI availability. HPI H&P: HPI History of Present Illness Chief complaint: SWELLING LEGS ANEMIA Narrative: 09/19/23 0820 This is a 57-year-old male patient with a complicated past medical history as outlined below including end-stage liver cirrhosis/GORDON with associated ascites requiring frequent paracentesis and liver transplant recommended, hypertension, DM type II, DVT on Xarelto, and hyperlipidemia; who presented to the ED yesterday evening complaining of sudden onset of left lower extremity edema. The patient was released from [facility] last week after a prolonged hospitalization for his newly diagnosed GORDON cirrhosis and associated complications. He reports paracentesis x 3 during that admission for ascites and was discharged home on lasix and spironolactone. He has been taking these medications as prescribed but states his LLE suddenly swelled to four times it's normal size , and her reported to the ED for further evaluation. Work up in the ED included a venous doppler study which was negative for DVT. An arterial duplex study was also negative for stenosis. Labs revealed mild leukocytosis (12.6), anemia (7.2), NAHOMI (BUN 45, CR 2.03, GFR 34), and elevated INR (4.01) and PTT (79.8). He was admitted to the hospitalist service early this morning for anemia, suspected acute blood loss in setting of coagulopathy, NAHOMI, and anasarca. At the time of my exam the patient is sleeping but awakens easily to voice. He denies confusion, SOB, chest pain, N/V. A repeat hemoglobin this morning was 6.3 and 2 units PRBCs have been ordered transfused. An ammonia level obtained on a.m. labs today was elevated (70), although no evidence of hepatic encephalopathy is noted during exam. The patient exhibits anasarca from the waist to the toes with insteps having significant edema of 3+ or more. His bilateral shins have mild changes consistent with cellulitis with warmth and erythema noted. Scattered blistering to the lower extremities is also noted. The patient denies any known melena, hematochezia, or hematuria. He was prescribed Xarelto during his last admission due to a left upper extremity DVT developed during that hospitalization. He does not remember when his last dose was taken but he thinks he took it yesterday morning. Xarelto has been held and the pt will be given 10 mg of Vit K to reverse his INR. The patient is currently finishing his first unit of blood was ordered this morning and a second unit is due to start shortly. Opioid HPI Opioid Management Most Recent Opioid Data: Last Pain Assessment 09/19/23 11:00 Last ORT Total Score 0 09/19/23 01:25 Last ORT Risk Category Low Risk 09/19/23 01:25 Review of Systems ROS Status of ROS 10 or more systems reviewed and unremark able except as noted in history and below [facility] Medical History (Updated 09/19/23 @ 11:38 by Roya Carver NP) Hyperlipidemia ?E78.5 - Hyperlipidemia, unspecified (ICD-10) DVT (deep venous thrombosis) ?I82.409 - Acute embolism and thrombosis of unspecified deep veins of unspe cified lower extremity (ICD-10) 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 alcohol ?K74.60 - Unspecified cirrhosis of liver (ICD-10) Social History Highest level of school completed/degree received: high school graduate Do you think of yourself as: straight/heterosexual Gender Identity: male Meds Home Medications and Allergies Home Medications ?Medication ?Instructions ?Recorded ?Confirmed ?Type metformin 500 mg tablet 500 mg PO BID 08/13/23 09/19/23 History acetaminophen 325 mg tablet 650 mg PO Q6H PRN fever or pain 09/18/23 09/18/23 History atorvastatin 20 mg tablet 20 mg PO DAILY 09/18/23 History carboxymethylcellulose sodium 0.5 1 drp ophthalmic (eye) Q8H PRN dry 09/18/23 09/18/23 History % eye drops in a dropperette eye(s) (Lubricant Eye Drops) cholecalciferol (vitamin D3) 1,250 50,000 unit PO QWEEK 09/18/23 09/19/23 History mcg (50,000 unit) capsule cyclobenzaprine 5 mg tablet 5 mg PO Q8H PRN muscle spasm 09/18/23 09/18/23 History folic acid 1 mg tablet 1 mg PO DAILY 09/18/23 History furosemide 40 mg tablet 40 mg PO DAILY 09/18/23 09/18/23 History lidocaine 4 % topical patch 1 patch topical Q24H 09/18/23 09/18/23 History lisinopril 5 mg tablet mg 09/18/23 History melatonin 3 mg tablet 3 mg PO DAILY PRN sleep 09/18/23 09/18/23 History rivaroxaban 15 mg tablet (Xarelto) 15 mg PO Q24H 09/18/23 History spironolactone 100 mg tablet 100 mg PO DAILY 09/18/23 09/18/23 History polyethylene glycol 3350 17 gram 17 g PO DAILY 09/19/23 09/19/23 History oral powder packet Allergies Allergy/AdvReac Type Severity Reaction Status Date / Time Penicillins AdvReac Mild Verified 09/18/23 19:55 Exam Constitutional Vital Signs, click to edit/add: Last Vital Signs Temp 98.2 F 09/19/23 10:19 Pulse 81 09/19/23 10:19 Resp 18 09/19/23 10:19 BP 108/67 09/19/23 10:19 Pulse Ox 93 L 09/19/23 10:19 O2 Del Method Room Air 09/19/23 10:19 Common normals: no apparent distress, oriented x3 and alert General appearance: cooperative and other (Jaundiced) Nutritional appearance: overweight Orientation/consciousness: Yes awake HENUT Common normals: normocephalic, head/scalp atraumatic, hearing grossly normal bilaterally, external nose normal and moist oral mucous membranes Eye Common normals: PERRL, EOMs intact bilaterally and conjunctivae normal Alignment: alignment normal Eyelid: eyelids normal Sclera: sclera abnormal Laterality of scleral abnormality: bilateral (icteric) Neck & C-Spine Common normals: full ROM, supple and no JVD Chest Common normals: inspection of chest normal Chest: symmetrical chest wall rise Respiratory Common normals: normal respiratory effort, no retractions, no use of accessory muscles and clear to auscultation bilaterally Effort & inspection: able to speak in complete sentences Auscultation: diminished lung sounds (BLL) Cardio Common normals: no JVD, regular rate, regular rhythm, S1 normal heart sound, S2 normal heart sound, no gallops, no clicks and no rub Heart sounds: murmur (HSM 3/6) GI Common normals: non-tender, no masses and no bruits Inspection: anasarca present, striae and fluid wave present Auscultation: normoactive bowel sounds Palpation: firm (Moderately firm diffusely, but not tense) and other (Unable to palpate liver/spleen d/t ascites/anasarca) Bladder/kidney exam: bladder normal to palpation Back & Pelvis Common normals: thoracic and lumbar spine normal to inspection Extremity Common normals: normal capillary refill General: no clubbing and no cyanosis Other: Ascites/edema from waist to toes. Significant 3-4+ edema bilat insteps, L>R Neuro Isabel Coma Scale: GCS not evaluated Common normals: CN's II-XII intact bilaterally, moves all extremities, no focal motor deficits and no sensory deficits noted Speech: speech normal Motor exam: strength 5/5 throughout Psych Common normals: mental status grossly normal, thought process normal, affect normal and activity/motor behavior normal Results Labs Labs: Short CBC 09/18/23 09/19/23 09/19/23 Range/Units 20:10 01:35 04:45 WBC 12.6 H 10.3 (4.0-11.0) 10^3/uL Hgb 7.2 L 6.5 L* 6.3 L* (14.0-18.0) g/dL Hct 22.3 L* 20.0 L* 19.6 L* (42.0-54.0) % Plt Count 141 L 113 L (150-450) 10^3/uL BMP 09/18/23 09/19/23 20:10 04:45 Sodium 137 138 Potassium 4.9 4.4 Chloride 102 104 Carbon Dioxide 22.8 24.4 BUN 45.0 H 46.0 H Creatinine 2.03 H 1.87 H Glucose 134 H 115 H Calcium 8.6 8.2 L Liver Function 09/18/23 09/19/23 Range/Units 20:10 04:45 Total Bilirubin 9.1 H 7.5 H (0.2-1.0) mg/dL AST 47 H 49 H (15-37) U/L ALT 19 18 (16-63) U/L Alkaline Phosphatase 122 H 131 H (46-116) U/L Albumin 3.4 2.9 L (3.4-5.0) g/dL Urine 09/19/23 Range/Units 04:20 Urine Color Yellow (YELLOW) Urine Clarity Clear (CLEAR) Urine pH 6.0 (5.0-9.0) Ur Specific [place] 1.020 (1.005-1.025) Urine Protein Negative (NEG/TRACE) mg/dL Urine Glucose (UA) Negative (NEGATIVE) mg/dL Pulse Oximetry Attestation: I have reviewed the pertinent pulse oximetry results. Imaging Left Duplex Scan LE: Attestation: I have reviewed the pertinent imaging results. Radiologist's impression: IMPRESSION: Triphasic waveforms throughout the left lower extremity. No evidence of stenosis. There is subcutaneous soft tissue edema of the left lower extremity. LLE Venous Doppler: Attestation: I have reviewed the pertinent imaging results. Radiologist's impression: IMPRESSION: No deep venous thrombosis. Assessment and Plan Assessment and Plan (1) ABLA (acute blood loss anemia): Assessment and Plan: Acute * Adm inpatient * We expect greater than a 2 midnight stay for medically necessary hospital care including frequent monitoring of labs for anemia, IV diuretic therapy, blood transfusions, further work up and possible intervention for acute on chronic ascites, etc. * Hgb 7.2 in ED, down to 6.3 on AM labs today * Suspect slow GI bleeding in setting of Xarelto admin and coagulopathy, but FOB was negative in ED and pt denies melena/hematochezia/hematuria * Transfuse 2 un PRBCs now * Recheck HH after 2nd unit and q6h * Further transfusions for hgb < 7 * General surgeon was consulted overnight, but we will cancel that for now. Consider consult if active bleeding site is identified * Hold home Xarelto * Vit K 10 mg IVP to reverse INR * CBC, CMP, INR daily (2) Coagulopathy: Assessment and Plan: Acute * 2/2 end stage liver cirrhosis * INR 4.01 in ED, down to 3.2 on AM labs * Vit k x 1 as noted above * Daily INR (3) NAHOMI (acute kidney injury): Assessment and Plan: Acute * NAHOMI on labs in ED - Cr 2.03, GFR 34 * Baseline renal fx - Cr 1.34, GFR 55 * Low urine output - 0.12 ml/kg/hr since admission * Suspect hepatorenal syndrome - see below * IVFs ordered on admission for NAHOMI - D/C as diuretic therapy is indicated * CMP daily (4) Hepatorenal syndrome: Assessment and Plan: Acute * Suspected w/ ascites/NAHOMI/cirrhosis * Start BID Bumex 2 mg IVP * Albumin 100 gm daily x 2 days at least, consider further doses pending clinical course * Midodrine 7.5 mg q8h for now, increase doses as needed or add norepinephrine if BP indicates * Transfer to ICU for close nursing monitoring and possible norepinephrine gtt to maintain BP * We will attempt transfer of this pt back to [facility] if possible as the pt requires specialty GI/Hepatology and Nephrology care which are unavailable at this facility (5) Hyperammonemia: Assessment and Plan: Acute * Start Lactulose 10 gm TID * Pt was on Lactulose during his last hospitalization, but was not discharged on it * No evidence of hepatic encephalopathy at this time but at significant risk - nursing to monitor closely (6) Ascites of liver: Assessment and Plan: Acute on Chronic * Suspect significant ascites based on exam findings * Obtain urgent US abdomen to assess for extent of ascites collection - consider paracentesis pending result (7) Cellulitis: Assessment and Plan: Acute * Erythema, calor to BLE shins, consistent w/ mild cellulitis * Mild leukocytosis ( 12.6) in ED * Afebrile * IVPB Rocephin * Compression wraps to reduce swelling (8) 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 alcohol: Assessment and Plan: Chronic * Recent diagnosis since August 12 when pt presented to this ED w/ c/o of difficulty ambulating d/t swollen legs and weakness * Pt was admitted to [facility] for new dx of cirrhosis at that time, then transferred to [facility] * Discharged from that admission on Monday (9) DVT (deep venous thrombosis): Assessment and Plan: Chronic * LUE DVT developed sometime between 08/12 and 09/15 during his last hospitalization * Pt discharged on Xarelto - hold d/t ABLA and coagulopathy (10) Hyperlipidemia: Assessment and Plan: Chronic * Hold statin for now d/t liver dysfunction/cirrhosis Urinary Catheter Management Urinary Catheter Management Urethral: Cath placed during this visit: yes Urethral indwelling: Yes Reason for continuing: measure accurate output Insertion date: 09/19/23 Insertion time: 04:20
[2023-09-19] MEDS: CEFTRIAXONE 1,000 MG in 0.9 % SODIUM CHLORIDE 50 ML 100 MG IV (11:56)
[2023-09-19 12:03] LABS: Glucometer 101 mg/dL (74-106)
[2023-09-19] MEDS: ALBUMIN HUMAN 25 GM/100 ML PREMIX IV ×4 (12:29→15:22)
[2023-09-19] MEDS: BUMETANIDE 1 MG/4 ML VIAL 2 MG IVP ×2 (12:36→20:37)
[2023-09-19] MEDS: MIDODRINE HCL 5 MG TABLET 7.5 MG PO ×2 (12:37→16:28)
[2023-09-19] MEDS: LIDOCAINE 5% PATCH 1 PATCH TOPICAL (12:37)
[2023-09-19 12:41] LABS: Hemoglobin 7.8 g/dL (14.0-18.0)
[2023-09-19 12:57] LABS: Hematocrit 23.8 % (42.0-54.0)
[2023-09-19] MEDS: LACTULOSE 10 GM/15 ML UD CUP PO ×2 (16:01→21:38)
[2023-09-19 16:03] LABS: Glucometer 100 mg/dL (74-106)
[2023-09-19 18:41] LABS: Hemoglobin 6.7 g/dL (14.0-18.0)
[2023-09-19 18:42] LABS: Hematocrit 19.7 % (42.0-54.0)
[2023-09-19] MEDS: ACETAMINOPHEN 325 MG TABLET 650 MG PO (20:36)
[2023-09-19] MEDS: CYCLOBENZAPRINE HCL 10 MG TABLET 5 MG PO (20:38)
[2023-09-19 21:35] LABS: Glucometer 197 mg/dL (74-106)
[2023-09-19] MEDS: 0.9 % SODIUM CHLORIDE 10 ML SYRINGE - SALINE FLUSH 100 ML IV (21:40)
[2023-09-19] MEDS: INSULIN ASPART 300 UNIT/3 ML PEN SUBQ (21:43)
[2023-09-20] VITALS (108 sets, daily range): BP systolic 93–165; BP diastolic 42–76; PULSE 48–78; TEMP 36.5–37.2; O2SAT 95–100
[2023-09-20 00:43] LABS: Hematocrit 21.2 % (42.0-54.0)
[2023-09-20] MEDS: LACTULOSE 10 GM/15 ML UD CUP PO ×3 (06:06→21:44)
[2023-09-20 07:18] LABS: Basophils Absolute Auto 0.1 10^3/uL (0.0-0.1); Basophils Percent Auto 1.3 % (0.2-2.0); Eosinophils Absolute Auto 0.5 10^3/uL (0.0-0.7); Eosinophils Percent Auto 8.3 % (0.9-7.0); Hemoglobin 7.3 g/dL (14.0-18.0); Immature Granulocytes Abs Auto 0.17 10^3/uL (0.00-0.03); Immature Granulocytes Pct Auto 2.8 % (0.0-0.5); Lymphocytes Absolute Auto 1.1 10^3/uL (1.2-3.8); Lymphocytes Percent Auto 17.5 % (20.5-60.0); Mean Corpuscular Hemoglobin 32.9 pg (25.9-34.0); Mean Corpuscular Volume 99.5 fL (80.0-94.0); Mean Platelet Volume 9.6 fL (9.5-13.5); Monocytes Absolute Auto 0.8 10^3/uL (0.3-0.8); Monocytes Percent Auto 12.7 % (1.7-12.0); Neutrophils Absolute Auto 3.5 10^3/uL (1.4-6.5); Neutrophils Percent Auto 57.4 % (43.0-75.0); Platelet Count 84 10^3/uL (150-450); Red Blood Count 2.22 10^6/uL (4.70-6.10); Red Cell Distribution Width 26.7 % (11.0-15.0); White Blood Count 6.1 10^3/uL (4.0-11.0)
[2023-09-20 07:21] LABS: Hematocrit 22.1 % (42.0-54.0)
[2023-09-20 07:35] LABS: Glucometer 89 mg/dL (74-106)
[2023-09-20 07:36] LABS: Alanine Aminotransferase 17 U/L (16-63); Albumin Globulin Ratio 2.1; Albumin Level 3.7 g/dL (3.4-5.0); Alkaline Phosphatase 110 U/L (46-116); Anion Gap 12.1; Aspartate Amino Transferase 45 U/L (15-37); BUN Creatinine Ratio 28.9; Bilirubin Total 11.3 mg/dL (0.2-1.0); Calcium 8.1 mg/dL (8.5-10.1); Carbon Dioxide 26.9 mmol/L (21.0-32.0); Chloride 104 mmol/L (98-107); Estimated GFR (African America 55 (>=60); Estimated GFR (Non-African Ame 45 (>=60); Globulin 1.8 g/dL; Glucose 81 mg/dL (74-106); Sodium 139 mmol/L (136-145); Total Protein 5.5 g/dL (6.4-8.2)
[2023-09-20 07:40] LABS: Ammonia 57 umol/L (11-32)
[2023-09-20 07:43] LABS: INR 2.17; Prothrombin Time 21.3 sec (9.0-11.6)
[2023-09-20 07:47] LABS: Partial Thromboplastin Time 59.1 sec (22.3-36.2)
[2023-09-20] MEDS: MIDODRINE HCL 5 MG TABLET 7.5 MG PO ×2 (08:10→11:40)
[2023-09-20] MEDS: ERGOCALCIFEROL (VITAMIN D2) 1,250 MCG/50,000 UNITS CAPSULE 1250 MCG PO (08:10)
[2023-09-20] MEDS: BUMETANIDE 1 MG/4 ML VIAL 2 MG IVP ×2 (08:10→21:43)
[2023-09-20] MEDS: FOLIC ACID 1 MG TABLET 5 MG PO (08:10)
[2023-09-20] MEDS: PHYTONADIONE (VIT K1) 5 MG in 0.9 % SODIUM CHLORIDE 50 ML 202 MG IV (08:13)
--- NOTE | 2023-09-20 09:47 | US_ITS ---
[address] [address] Patient Name: LAURITA BUSTAMANTE MRN: [id number] date: 1965 Sex: M Assigned Patient Location: ICU Current Patient Location: ICU Accession/Order Number: [id number] Exam Date: 09/20/2023 10:00 Report Date: 09/20/2023 11:41 At the request of: NJ QUINTERO Procedure: US paracentesis abd w/image EXAMINATION: US paracentesis abd w/image HISTORY: ascites COMPARISON: No relevant comparison available. DESCRIPTION: Informed consent was obtained. The patient was prepped and draped in standard sterile fashion. Ultrasound-guided paracentesis was performed in the usual sterile manner using 1% Xylocaine. FINDINGS: SITE: Left lower quadrant NEEDLE: Paracentesis 8 Fr. catheter over 18 gauge needle MEDICATION: 1% buffered Xylocaine for local anesthesia FLUID DESCRIPTION: Opaque yellowish fluid FLUID VOLUME: 10.45 L COMPLICATIONS: Delayed clotting of blood at entry site (22 minutes of applied pressure) LABORATORY: None (therapeutic) OTHER: Negative. US/US paracentesis abd w/image IMPRESSION: 1. Therapeutic paracentesis with removal of 10.45 L of opaque yellowish fluid. Electronically authenticated by: BENITA TOLBERT Date: 09/20/2023 11:41
[2023-09-20] MEDS: LIDOCAINE HCL 10 ML, SODIUM BICARBONATE 1 MEQ INJ (10:00)
--- NOTE | 2023-09-20 10:13 | CM.NOTE ---
Rounds made with Dr. Bernabe. Plan for Paracentesis this am. Await transfer to Tertiary Facility.
[2023-09-20] MEDS: CEFTRIAXONE 1,000 MG in 0.9 % SODIUM CHLORIDE 50 ML 100 MG IV (11:39)
[2023-09-20] MEDS: LIDOCAINE 5% PATCH 1 PATCH TOPICAL (11:40)
[2023-09-20 11:43] LABS: Glucometer 92 mg/dL (74-106)
--- NOTE | 2023-09-20 11:48 | SUR.PREOP ---
09/19/23 Spoke with Roya Carver NP and discussed pt last dose of Xarelto on 09/17 and pt current elevated INR. will plan on doing 09/19 when Xarelto has sufficient time to metabolize from his system and pending INR <1.7 Noted INR 1.0. 09/20/23 Noted pt INR 2.1 and spoke with pt nurse Barbie. She states that pt did receive vitamin K IV this morning and it ended at 0839. Dr Stevenson made aware of INR from this morning and pt received vitamin K already. Agreed to proceed with procedure at approx 1000.
[2023-09-20] MEDS: ALBUMIN HUMAN 25 GM/100 ML PREMIX IV ×4 (12:26→15:19)
[2023-09-20 13:06] LABS: Hematocrit 23.5 % (42.0-54.0)
--- NOTE | 2023-09-20 13:18 | P.PN_ITS ---
<Statement entered by Shaikh Florecita MD - 09/20/23 15:20> This documentation has been reviewed and approved. Seen and examined. Case discussed with Nursing staff and Hospitalist DIRECTOR OF RESIDENTIAL SERVICES. No overnight events. Still awaiting bed at . C/w Bumex for volume overload, monitor H&H and keep Hb above 7. s/p paracentesis. Renal function improving. Monitor UO closely. Progress Note: Subjective Subjective Interval history: 09/20/23 0840 The patient is resting comfortably in bed having just finished eating breakfast. He denies any chest pain, shortness of breath, or significant abdominal discomfort. On exam his ascites does appear more tense and a paracentesis will be obtained later this morning. The patient's INR was elevated again at 2.17 and we have reversed this with 5 mg of vitamin K IV. The patient's hemoglobin dropped overnight below 7 and he received a 3rd unit of PRBCs. His hemoglobin is stable this morning at 7.3. A repeat hemoglobin is due within a few hours and we will consider further PRBC transfusions pending those results. Transfer is possible later today to [facility] for specialty care of his hepatorenal syndrome. In the meantime we will continue with daily albumin, BID bumex IVP, and midodrine dosing. Exam Narrative Exam Narrative: Jaundice Constitutional Vital Signs, click to edit/add: Last Vital Signs Temp 97.7 F 09/20/23 07:41 Pulse 66 09/20/23 12:05 Resp 17 09/20/23 12:05 BP 105/51 09/20/23 11:29 Pulse Ox 100 09/20/23 12:05 O2 Del Method Room Air 09/20/23 09:45 Common normals: no apparent distress, oriented x3 and alert General appearance: cooperative Orientation/consciousness: Yes awake HENKS Common normals: normocephalic, head/scalp atraumatic and hearing grossly normal bilaterally Eye Common normals: PERRL, EOMs intact bilaterally and conjunctivae normal Conjunctiva: conjunctiva(e) normal Sclera: sclera abnormal Laterality of scleral abnormality: bilateral (icteric) Pupil: PERRL Chest Common normals: inspection of chest normal Chest: symmetrical chest wall rise Respiratory Common normals: normal respiratory effort, no use of accessory muscles and clear to auscultation bilaterally Effort & inspection: able to speak in complete sentences Auscultation: clear to auscultation bilaterally and diminished lung sounds (BLL) Cardio Common normals: regular rate, regular rhythm, S1 normal heart sound, S2 normal heart sound and peripheral pulses 2+ throughout Heart sounds: murmur (HSM 2/6) Peripheral pulses: pulses 2+ throughout GI Common normals: Normal to inspection, nondistended, normoactive bowel sounds present, soft to palpation, non-tender and no hepatosplenomegaly Inspection: fluid wave present Palpation: soft, no hepatosplenomegaly, ascites present (tense) and other (Pitting edema from nipple line down) Bladder/kidney exam: bladder normal to palpation Extremity Common normals: normal to inspection and no calf tenderness General: edema (2-4+ BLE hips to toes, greatest at insteps); no clubbing and no cyanosis Neuro Common normals: oriented x3, CN's II-XII intact bilaterally, moves all extremities, no focal motor deficits and no sensory deficits noted Sensorium/orientation: awake and alert Psych Common normals: mental status grossly normal Progress Note: Objective Labs Labs: Short CBC 09/19/23 09/20/23 09/20/23 Range/Units 18:27 00:20 06:30 WBC 6.1 (4.0-11.0) 10^3/uL Hgb 6.7 L* 7.0 L 7.3 L (14.0-18.0) g/dL Hct 19.7 L* 21.2 L* 22.1 L* (42.0-54.0) % Plt Count 84 L (150-450) 10^3/uL 09/20/23 Range/Units 12:25 WBC (4.0-11.0) 10^3/uL Hgb 8.0 L (14.0-18.0) g/dL Hct 23.5 L* (42.0-54.0) % Plt Count (150-450) 10^3/uL BMP 09/20/23 06:30 Sodium 139 Potassium 4.0 Chloride 104 Carbon Dioxide 26.9 BUN 46.0 H Creatinine 1.59 H Glucose 81 Calcium 8.1 L Liver Function 09/20/23 Range/Units 06:30 Total Bilirubin 11.3 H (0.2-1.0) mg/dL AST 45 H (15-37) U/L ALT 17 (16-63) U/L Alkaline Phosphatase 110 (46-116) U/L Albumin 3.7 (3.4-5.0) g/dL Progress Note: A&P Assessment and Plan (1) ABLA (acute blood loss anemia): Assessment and Plan: Acute * Hgb down to 6.7 overnight * Possible slow GI bleeding in setting of Xarelto admin and coagulopathy, but FOB was negative in ED and pt denies melena/hematochezia/hematuria * 3rd unit PRBCs transfused overnight * Recheck HH this morning stable at 7.3 * HH q6h * Further transfusions for hgb < 7 * No confirmed active bleeding * Hold home Xarelto * CBC, CMP, INR daily (2) Coagulopathy: Assessment and Plan: Acute * 2/2 end stage liver cirrhosis * INR back up to 2.17 today * Vit k 5 mg IV x 1 to reverse * Daily INR (3) NAHOMI (acute kidney injury): Assessment and Plan: Acute * Improving * Cr 1.54, GFR 45 on AM labs today * Baseline renal fx - Cr 1.34, GFR 55 * Oliguria resolved * Suspect hepatorenal syndrome - see below * CMP daily (4) Hepatorenal syndrome: Assessment and Plan: Acute * Suspected w/ ascites/NAHOMI/cirrhosis * Continue BID Bumex 2 mg IVP * Continue Albumin 100 gm daily today, consider further doses pending clinical course * Increase Midodrine to 10 mg q8h, increase doses as needed or add norepinephrine if BP indicates * Transfer pending to [facility] - Dr Mayo accepting provider. Transfer pending bed availability (5) Hyperammonemia: Assessment and Plan: Acute * Improving - Amm 57 today * Continue Lactulose 10 gm TID * Pt was on Lactulose during his last hospitalization, but was not discharged on it * No evidence of hepatic encephalopathy at this time but at significant risk - nursing to monitor closely (6) Ascites of liver: Assessment and Plan: Acute on Chronic * US abdomen on 09/19/23 confirmed large volume ascites * Paracentesis planned later this morning * Consider further albumin dosing pending volume removed (7) Cellulitis: Assessment and Plan: Acute * Improving * Erythema, calor to BLE shins, consistent w/ mild cellulitis * Mild leukocytosis resolved today * Afebrile * Continue IVPB Rocephin * Compression wraps to reduce swelling (8) 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 alcohol: Assessment and Plan: Chronic * Recent diagnosis since August 13, 2023 when pt presented to this ED w/ c/o of difficulty ambulating d/t swollen legs and weakness * Pt was admitted to [facility] for new dx of cirrhosis at that time, then transferred to [facility] * Discharged from that admission on 09/16/23 (9) DVT (deep venous thrombosis): Assessment and Plan: Chronic * LUE DVT developed sometime between 08/12 and 09/15 during recent hospitalization * Pt discharged on Xarelto - hold d/t ABLA and coagulopathy (10) Hyperlipidemia: Assessment and Plan: Chronic * Hold statin for now d/t liver dysfunction/cirrhosis Urinary Catheter Management Urinary Catheter Management Urethral: Cath placed during this visit: yes Urethral indwelling: Yes Reason for continuing: ICU pt on diuretics Insertion date: 09/19/23 Insertion time: 04:20
--- NOTE | 2023-09-20 13:26 | PC.NURSE ---
update given to lee at transfer center.
[2023-09-20] MEDS: MIDODRINE HCL 5 MG TABLET 10 MG PO (16:05)
[2023-09-20 16:07] LABS: Glucometer 136 mg/dL (74-106)
[2023-09-20 18:48] LABS: Hemoglobin 7.5 g/dL (14.0-18.0)
[2023-09-20 18:49] LABS: Hematocrit 22.7 % (42.0-54.0)
[2023-09-20 21:06] LABS: Glucometer 159 mg/dL (74-106)
[2023-09-21] VITALS (118 sets, daily range): BP systolic 89–128; BP diastolic 49–64; PULSE 66–84; TEMP 36.4–36.9; O2SAT 94–100
[2023-09-21 00:29] LABS: Hemoglobin 7.5 g/dL (14.0-18.0)
[2023-09-21 00:31] LABS: Hematocrit 22.8 % (42.0-54.0)
[2023-09-21] MEDS: LACTULOSE 10 GM/15 ML UD CUP PO ×3 (05:31→21:08)
[2023-09-21 05:34] LABS: Basophils Absolute Auto 0.1 10^3/uL (0.0-0.1); Basophils Percent Auto 1.6 % (0.2-2.0); Eosinophils Absolute Auto 0.4 10^3/uL (0.0-0.7); Eosinophils Percent Auto 6.8 % (0.9-7.0); Hemoglobin 7.7 g/dL (14.0-18.0); Immature Granulocytes Abs Auto 0.15 10^3/uL (0.00-0.03); Immature Granulocytes Pct Auto 2.6 % (0.0-0.5); Lymphocytes Percent Auto 17.6 % (20.5-60.0); Mean Corpuscular HGB Conc 33.6 g/dL (29.9-35.2); Mean Corpuscular Hemoglobin 33.8 pg (25.9-34.0); Mean Corpuscular Volume 100.4 fL (80.0-94.0); Mean Platelet Volume 9.4 fL (9.5-13.5); Monocytes Absolute Auto 0.8 10^3/uL (0.3-0.8); Monocytes Percent Auto 13.9 % (1.7-12.0); Neutrophils Absolute Auto 3.3 10^3/uL (1.4-6.5); Neutrophils Percent Auto 57.5 % (43.0-75.0); Platelet Count 92 10^3/uL (150-450); Red Blood Count 2.28 10^6/uL (4.70-6.10); Red Cell Distribution Width 26.3 % (11.0-15.0); White Blood Count 5.7 10^3/uL (4.0-11.0)
[2023-09-21 05:49] LABS: INR 1.91
[2023-09-21 05:52] LABS: Alanine Aminotransferase 16 U/L (16-63); Albumin Globulin Ratio 2.2; Albumin Level 3.7 g/dL (3.4-5.0); Alkaline Phosphatase 136 U/L (46-116); Anion Gap 10.7; Aspartate Amino Transferase 39 U/L (15-37); BUN Creatinine Ratio 25.9; Bilirubin Total 8.1 mg/dL (0.2-1.0); Calcium 8.2 mg/dL (8.5-10.1); Chloride 103 mmol/L (98-107); Estimated GFR (African America >60 (>=60); Estimated GFR (Non-African Ame 50 (>=60); Globulin 1.7 g/dL; Glucose 116 mg/dL (74-106); Potassium 3.7 mmol/L (3.5-5.1); Sodium 139 mmol/L (136-145); Total Protein 5.4 g/dL (6.4-8.2)
[2023-09-21 05:58] LABS: Ammonia 63 umol/L (11-32); Hematocrit 22.9 % (42.0-54.0)
[2023-09-21 07:53] LABS: Glucometer 121 mg/dL (74-106)
[2023-09-21] MEDS: MIDODRINE HCL 5 MG TABLET 10 MG PO ×3 (07:53→17:50)
[2023-09-21] MEDS: FOLIC ACID 1 MG TABLET 5 MG PO (09:33)
[2023-09-21] MEDS: BUMETANIDE 1 MG/4 ML VIAL 2 MG IVP ×2 (09:50→21:08)
--- NOTE | 2023-09-21 09:53 | PM.IMPN1 ---
Progress Note: A&P Assessment and Plan (1) Anemia: Assessment and Plan: Sec to liver disease. Hb stable. Monitor. Qualifiers: Anemia type: other cause Other causes of anemia: chronic disease, other Qualified Code(s): D63.8 - Anemia in other chronic diseases classified elsewhere (2) Coagulopathy: Assessment and Plan: due to liver cirrhosis. Monitor. (3) NAHOMI (acute kidney injury): Assessment and Plan: due to hepatorenal - improved with bumex. (4) Hepatorenal syndrome: Assessment and Plan: Improving with bumex, c/w same. (5) Hyperammonemia: Assessment and Plan: lethargy/generalized weakness, no confusion. Cw Lactulose. (6) Ascites of liver: Assessment and Plan: s/p paracentesis -removed 10 L, monitor. (7) Cellulitis: Assessment and Plan: Improving. On Rocephin. 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 Had prolonged hospital stay at [facility] - accepted for transfer, awaiting bed availability. (9) DVT (deep venous thrombosis): Assessment and Plan: on Xarelto - resume - as no evidence of overt/active bleeding and had DVT within 3 months. (10) Anasarca: Assessment and Plan: Improving wiht bumex, had paracentesis, about 10 L removed. (11) Abnormal liver enzymes: Assessment and Plan: due to liver cirrhosis. Bilirubin slowly increasing. No GI available at our facility, awaiting bed availability. (12) Generalized weakness: Assessment and Plan: due to chronic illness, liver cirrhosis. PT/OT eval. Plan Awaiting bed availability at . PT/OT to ascertain need for possible rehab. Hb stable. C/w Bumex, monitor renal function/UO closely. Internal Medicine - PN: Subj Subjective Interval history: Seen and examined. No overnight events. Reports generalized weakness, and b/l LE pain due to edema/swelling. Hb stable. Feels a little drowsy and tired. Good UO on bumex - over 3 L UO in 24 hours. Exam Constitutional Vital Signs, click to edit/add: Last Vital Signs Temp 98.2 F 09/21/23 08:00 Pulse 73 09/21/23 08:00 Resp 20 09/21/23 08:00 BP 102/53 09/21/23 09:50 Pulse Ox 98 09/21/23 08:00 O2 Del Method Room Air 09/21/23 08:00 Documenting provider has reviewed patient's vital signs: yes General appearance: cooperative, comfortable, lethargic and ill appearing Nutritional appearance: obese HENMT Common normals: normocephalic and head/scalp atraumatic Eye Conjunctiva: conjunctiva abnormal bilateral conjunctival icterus EOM: EOM abnormal Respiratory Common normals: normal respiratory effort, no use of accessory muscles and clear to auscultation bilaterally Effort & inspection: able to speak in complete sentences Cardio Common normals: no JVD, regular rate, regular rhythm, S1 normal heart sound and S2 normal heart sound GI Common normals: Normal to inspection, nondistended, normoactive bowel sounds present, soft to palpation and non-tender Inspection: normal to inspection Extremity General: edema (b/l, left more than right. ) Internal Medicine - PN: Obj Da Labs Labs: Laboratory Results - last 24 hr 09/20/23 09/20/23 09/20/23 11:42 12:25 16:04 WBC RBC Hgb 8.0 L Hct 23.5 L* MCV MCH MCHC RDW Plt Count MPV Neut % (Auto) Lymph % (Auto) [place] % (Auto) Eos % (Auto) Baso % (Auto) Neut # (Auto) Lymph # (Auto) [place] # (Auto) Eos # (Auto) Baso # (Auto) Abs Immat Gran (auto) Imm/Tot Granulo (auto) PT INR Sodium Potassium Chloride Carbon Dioxide Anion Gap BUN Creatinine Est GFR ( Amer) Est GFR (Non-Af Amer) BUN/Creatinine Ratio Glucose Calcium Total Bilirubin AST ALT Alkaline Phosphatase Ammonia Total Protein Albumin Globulin Albumin/Globulin Ratio POC Glucose 92 136 H 09/20/23 09/20/23 09/21/23 18:43 21:05 00:20 WBC RBC Hgb 7.5 L 7.5 L Hct 22.7 L* 22.8 L* MCV MCH MCHC RDW Plt Count MPV Neut % (Auto) Lymph % (Auto) [place] % (Auto) Eos % (Auto) Baso % (Auto) Neut # (Auto) Lymph # (Auto) [place] # (Auto) Eos # (Auto) Baso # (Auto) Abs Immat Gran (auto) Imm/Tot Granulo (auto) PT INR Sodium Potassium Chloride Carbon Dioxide Anion Gap BUN Creatinine Est GFR ( Amer) Est GFR (Non-Af Amer) BUN/Creatinine Ratio Glucose Calcium Total Bilirubin AST ALT Alkaline Phosphatase Ammonia Total Protein Albumin Globulin Albumin/Globulin Ratio POC Glucose 159 H 09/21/23 09/21/23 05:25 07:52 WBC 5.7 RBC 2.28 L Hgb 7.7 L Hct 22.9 L* MCV 100.4 H MCH 33.8 MCHC 33.6 RDW 26.3 H Plt Count 92 L MPV 9.4 L Neut % (Auto) 57.5 Lymph % (Auto) 17.6 L [place] % (Auto) 13.9 H Eos % (Auto) 6.8 Baso % (Auto) 1.6 Neut # (Auto) 3.3 Lymph # (Auto) 1.0 L [place] # (Auto) 0.8 Eos # (Auto) 0.4 Baso # (Auto) 0.1 Abs Immat Gran (auto) 0.15 H Imm/Tot Granulo (auto) 2.6 H PT 19.0 H INR 1.91 Sodium 139 Potassium 3.7 Chloride 103 Carbon Dioxide 29.0 Anion Gap 10.7 BUN 38.0 H Creatinine 1.47 H Est GFR ( Amer) >60 Est GFR (Non-Af Amer) 50 L BUN/Creatinine Ratio 25.9 Glucose 116 H Calcium 8.2 L Total Bilirubin 8.1 H AST 39 H ALT 16 Alkaline Phosphatase 136 H Ammonia 63 H* Total Protein 5.4 L Albumin 3.7 Globulin 1.7 Albumin/Globulin Ratio 2.2 POC Glucose 121 H Urinary Catheter Management Urinary Catheter Management Urethral: Cath placed during this visit: yes Urethral indwelling: Yes Reason for continuing: not indwelling catheter Insertion date: 09/19/23 Insertion time: 04:20
--- NOTE | 2023-09-21 10:15 | CM.NOTE ---
Rounds made with Dr. Bernabe. Continue to await transfer to Tertiary facility, Pt states has not been up much since pain & swelling in legs. PT/OT eval to be ordered. If he needs help at discharge his current plan is to stay with family.
--- NOTE | 2023-09-21 10:56 | SWNOTE1 ---
SW spoke to case management and plan is still for transfer. Doctor is ordering PT/OT. SW to check therapy notes.
[2023-09-21] MEDS: CEFTRIAXONE 1,000 MG in 0.9 % SODIUM CHLORIDE 50 ML 100 MG IV (11:34)
[2023-09-21] MEDS: LIDOCAINE 5% PATCH 1 PATCH TOPICAL (11:34)
[2023-09-21 11:49] LABS: Glucometer 119 mg/dL (74-106)
--- NOTE | 2023-09-21 14:10 | SWNOTE1 ---
SW did see that OT did recommend SNF. SW to speak with pt to see if pt does not transfer if he is agreeable to SNF.
--- NOTE | 2023-09-21 15:22 | SWNOTE1 ---
SW stopped in to speak with pt. Physical therapy and nursing in room as well. Physical therapy was just ending. Pt was planning on living with his sister after discharge from whatever facility he ends up at. His sister has about 3 steps to get in to the home. Pt does not usually use any DME at home, but was using a walker with therapy. SW and pt spoke about discharge plans if he does get better and does not need transferred. Pt's plan was to go to his sister's, but not sure about the steps. Pt voiced that his sister would come live with him, he does not have steps. Therapy would recommend HH. Pt is open to having HH come in. SW to reach out to a few HH companies and see if they take medicaid.
--- NOTE | 2023-09-21 15:29 | SWNOTE1 ---
[facility] does accept medicaid.
[2023-09-21 16:20] LABS: Glucometer 107 mg/dL (74-106)
[2023-09-21 21:12] LABS: Glucometer 134 mg/dL (74-106)
== END 2023-09-21 22:50 | disposition short-term general hospital (02) ==
LOC: ER 09-19 00:27 → MS 09-19 01:20 → ICU 09-19 11:19
PROVIDERS: Nurse Practitioner; Nurse Practitioner Acute Care; Physician Assistant; Radiology Diagnostic Radiology; Admitting Provider Internal Medicine; Emergency Provider Emergency Medicine; PCP Internal Medicine; Visit Provider Internal Medicine
DX: K74.60 Unspecified cirrhosis of liver (principal); D63.8 Anemia in other chronic diseases classified elsewhere; D68.8 Other specified coagulation defects; N17.8 Other acute kidney failure; K76.7 Hepatorenal syndrome; E72.20 Disorder of urea cycle metabolism, unspecified; R18.8 Other ascites; L03.116 Cellulitis of left lower limb; L03.115 Cellulitis of right lower limb; I82.722 Chronic embolism and thrombosis of deep veins of left upper extremity; E78.5 Hyperlipidemia, unspecified; E11.9 Type 2 diabetes mellitus without complications; K75.81 Nonalcoholic steatohepatitis (NASH); Z79.01 Long term (current) use of anticoagulants; Z79.84 Long term (current) use of oral hypoglycemic drugs; Z79.899 Other long term (current) drug therapy; R53.1 Weakness
CPT/HCPCS: 36415; 36430; 36569; 36592; 49083; 51702; 71045; 76705; 80053; 81001; 82140; 82948; 85014; 85018; 85025; 85610; 85730; 86850; 86900; 86901; 93926; 93971; 96365; 96366; 96367; 96375; 96376; 97162; 97165; 97530; 99285; C1887; G0328; P9016; P9047

== ENCOUNTER 2023-10-04 12:09 | Outpatient (OUT) | payer MEDICAID, SELFPAY ==
[2023-10-04 12:35] LABS: Basophils Absolute Auto 0.2 10^3/uL (0.0-0.1); Basophils Percent Auto 1.5 % (0.2-2.0); Eosinophils Absolute Auto 0.4 10^3/uL (0.0-0.7); Hematocrit 33.8 % (42.0-54.0); Hemoglobin 11.2 g/dL (14.0-18.0); Immature Granulocytes Abs Auto 0.19 10^3/uL (0.00-0.03); Immature Granulocytes Pct Auto 1.9 % (0.0-0.5); Lymphocytes Absolute Auto 1.2 10^3/uL (1.2-3.8); Lymphocytes Percent Auto 12.5 % (20.5-60.0); Mean Corpuscular HGB Conc 33.1 g/dL (29.9-35.2); Mean Corpuscular Hemoglobin 35.4 pg (25.9-34.0); Mean Platelet Volume 10.4 fL (9.5-13.5); Monocytes Absolute Auto 1.2 10^3/uL (0.3-0.8); Monocytes Percent Auto 12.5 % (1.7-12.0); Neutrophils Absolute Auto 6.7 10^3/uL (1.4-6.5); Neutrophils Percent Auto 67.6 % (43.0-75.0); Platelet Count 104 10^3/uL (150-450); Red Blood Count 3.16 10^6/uL (4.70-6.10); Red Cell Distribution Width 21.2 % (11.0-15.0); White Blood Count 9.9 10^3/uL (4.0-11.0)
[2023-10-04 12:46] LABS: INR 1.31; Prothrombin Time 13.5 sec (9.0-11.6)
[2023-10-04 13:14] LABS: Alanine Aminotransferase 37 U/L (16-63); Albumin Level 3.3 g/dL (3.4-5.0); Alkaline Phosphatase 213 U/L (46-116); Anion Gap 16.5; Aspartate Amino Transferase 100 U/L (15-37); Calcium 9.3 mg/dL (8.5-10.1); Chloride 102 mmol/L (98-107); Estimated GFR (African America >60 (>=60); Estimated GFR (Non-African Ame 55 (>=60); Globulin 3.3 g/dL; Glucose 80 mg/dL (74-106); Potassium 4.5 mmol/L (3.5-5.1); Sodium 137 mmol/L (136-145)
[2023-10-04 13:56] LABS: Total Protein 6.6 g/dL (6.4-8.2)
== END 2023-10-04 12:10 | disposition home or self-care (01) ==
LOC: LAB 12:16
DX: Z01.812 Encounter for preprocedural laboratory examination (principal); K75.81 Nonalcoholic steatohepatitis (NASH); K74.60 Unspecified cirrhosis of liver; Z01.818 Encounter for other preprocedural examination
CPT/HCPCS: 36415; 80053; 85025; 85610; 86850; 86900; 86901

== ENCOUNTER 2023-10-27 12:12 | Outpatient (OUT) | payer MEDICAID, SELFPAY ==
[2023-10-27 13:27] LABS: Basophils Absolute Auto 0.2 10^3/uL (0.0-0.1); Basophils Percent Auto 2.1 % (0.2-2.0); Eosinophils Absolute Auto 0.4 10^3/uL (0.0-0.7); Hematocrit 35.7 % (42.0-54.0); Hemoglobin 12.4 g/dL (14.0-18.0); Immature Granulocytes Abs Auto 0.21 10^3/uL (0.00-0.03); Immature Granulocytes Pct Auto 2.4 % (0.0-0.5); Lymphocytes Absolute Auto 1.5 10^3/uL (1.2-3.8); Lymphocytes Percent Auto 16.4 % (20.5-60.0); Mean Corpuscular HGB Conc 34.7 g/dL (29.9-35.2); Mean Corpuscular Hemoglobin 37.1 pg (25.9-34.0); Mean Corpuscular Volume 106.9 fL (80.0-94.0); Mean Platelet Volume 10.3 fL (9.5-13.5); Monocytes Absolute Auto 1.1 10^3/uL (0.3-0.8); Monocytes Percent Auto 12.5 % (1.7-12.0); Neutrophils Absolute Auto 5.5 10^3/uL (1.4-6.5); Neutrophils Percent Auto 61.6 % (43.0-75.0); Platelet Count 114 10^3/uL (150-450); Red Blood Count 3.34 10^6/uL (4.70-6.10); Red Cell Distribution Width 16.2 % (11.0-15.0); White Blood Count 8.9 10^3/uL (4.0-11.0)
[2023-10-27 13:39] LABS: INR 1.39; Prothrombin Time 14.3 sec (9.0-11.6)
[2023-10-27 14:26] LABS: Alanine Aminotransferase 28 U/L (16-63); Albumin Globulin Ratio 0.8; Albumin Level 3.1 g/dL (3.4-5.0); Alkaline Phosphatase 191 U/L (46-116); Anion Gap 12.1; Aspartate Amino Transferase 64 U/L (15-37); BUN Creatinine Ratio 22.2; Bilirubin Total 5.3 mg/dL (0.2-1.0); Carbon Dioxide 24.9 mmol/L (21.0-32.0); Chloride 104 mmol/L (98-107); Estimated GFR (African America >60 (>=60); Estimated GFR (Non-African Ame 54 (>=60); Globulin 3.9 g/dL; Glucose 107 mg/dL (74-106); Sodium 137 mmol/L (136-145)
== END 2023-10-27 12:13 | disposition home or self-care (01) ==
LOC: LAB 12:16
DX: Z01.818 Encounter for other preprocedural examination (principal); K75.81 Nonalcoholic steatohepatitis (NASH); K74.60 Unspecified cirrhosis of liver
CPT/HCPCS: 36415; 80053; 85025; 85610; 86850; 86900; 86901

== ENCOUNTER 2024-01-24 15:27 | Emergency (ER) | payer OTHER, MEDICAID, SELFPAY ==
[2024-01-24] VITALS (24 sets, daily range): BP systolic 105–144; BP diastolic 56–89; PULSE 73–88; TEMP 36.6; O2SAT 95–100; BMI 37.7
--- NOTE | 2024-01-24 15:36 | ECG_ITS ---
The [facility] Test Date: 2024-01-24 Pat Name: LAURITA BUSTAMANTE Department: Room: - Gender: Male Rehabilitation Case Coordinator: : 1965 Requested By: Order Number: [id number] Reading MD: ADOLFO RAIN Measurements Intervals Speed Rate: 75 P: 182 MI: 160 QRS: 73 QRSD: 102 T: 136 QT: 570 QTc: 441 Interpretive Statements 1002 Marked rhythm irregularity 1970 with occasional ectopic premature complexes Nonspecific ST/T wave changes 8101 Low QRS voltage in limb leads 9150 abnormal ECG Electronically Signed On 01-24-2024 22:52:20 EDT by ADOLFO RAIN
--- NOTE | 2024-01-24 15:38 | ED.GENADUL1 ---
HPI HPI - General Adult General Chief complaint: Shortness of Breath/Dyspnea Stated complaint: Chest Pain, Congestion Time Seen by Provider: 01/24/24 15:30 History of Present Illness HPI narrative: Patient presents to ED complaining of shortness of breath. Patient is on the transplant list for liver transplant at [facility]. He has a history of cirrhosis of the liver he states they told him its GORDON. Patient states he was up there today and they attempted to get blood work but they were unsuccessful. They also did a chest x-ray for his shortness of breath and it showed fluid buildup in the left lung. Patient states they wanted him to be admitted for drainage of this fluid but they told him to come to a hospital closer to home if that was easier according to the patient and family. Patient reports increased shortness of breath, no chest pain, shortness of breath is worse with exertion. Active cough no fever. Patient denies any abdominal pain or vomiting. Oxygen saturation 97% on room air upon arrival. Related Data Home Medications ?Medication ?Instructions ?Recorded ?Confirmed metformin 500 mg tablet 500 mg PO DAILY 08/13/23 01/24/24 cholecalciferol (vitamin D3) 1,250 50,000 unit PO QWEEK 09/18/23 01/24/24 mcg (50,000 unit) capsule furosemide 40 mg tablet 40 mg PO DAILY 09/18/23 01/24/24 melatonin 3 mg tablet 3 mg PO DAILY PRN sleep 09/18/23 01/24/24 polyethylene glycol 3350 17 gram 17 g PO DAILY 09/19/23 01/24/24 oral powder packet lactulose 10 gram/15 mL oral 10 g PO DAILY 01/24/24 01/24/24 solution Allergies Allergy/AdvReac Type Severity Reaction Status Date / Time Penicillins AdvReac Mild Hives Verified 01/24/24 15:42 Opioid HPI Opioid Management Most Recent Opioid Data: Last Pain Scale 9 09/19/23 20:36 Last ORT Total Score 0 09/19/23 01:25 Last ORT Risk Category Low Risk 09/19/23 01:25 Review of Systems ROS Status of ROS 10 or more systems reviewed and unremarkable except as noted in history and below [facility] Medical History (Updated 01/24/24 @ 15:55 by April Fields RN) Type 2 diabetes mellitus ?E11.9 - Type 2 diabetes mellitus without complications (ICD-10) Hyperlipidemia ?E78.5 - Hyperlipidemia, unspecified (ICD-10) DVT (deep venous thrombosis) ?I82.409 - Acute embolism and thrombosis of unspecified deep veins of unspecified lower extremity (ICD-10) 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 alcohol ?K74.60 - Unspecified cirrhosis of liver (ICD-10) Social History Highest level of school completed/degree received: high school graduate Little interest or pleasure in doing things: not at all Feeling down, depressed, or hopeless: not at all Do you think of yourself as: straight/heterosexual Gender Identity: male Exam Narrative Exam Narrative: Time Seen: [] Vital Signs: [Per nurse's notes.] General: [Alert] Skin: [Warm, dry, no rash.]Jaundice Head: [Normocephalic, atraumatic.] Neck: [Supple, trachea midline.] Eye: [Pupils are equal, round and reactive to light, extraocular movements are intact, Mild scleral icterus Ears, nose, mouth and throat: oral mucosa moist. Cardiovascular: [Regular rate and rhythm, no murmur.] Respiratory: [Diminished breath sounds on the right, more clear on the left. Deep breathing elicits a cough for the patient respirations are non-labored, breath sounds are equal.] Chest wall: [No tenderness, no deformity.] Gastrointestinal: [Soft, nontender,Mild distention and fluid on exam normal bowel sounds.] MSK: 5 out of 5 muscle strength x 4 extremities no calf pain or edema Lymphatics: [No lymphadenopathy.] Psychiatric: [Cooperative, appropriate mood & affect.] Neurological: [Alert and oriented to person, place, time, and situation, no focal neurological deficit observed.] Constitutional Vital Signs, click to edit/add: Last Vital Signs Temp 97.9 F 01/24/24 15:32 Pulse 82 01/24/24 17:48 Resp 24 H 01/24/24 17:48 BP 144/59 H 01/24/24 17:48 Pulse Ox 97 01/24/24 17:48 O2 Del Method Room Air 01/24/24 15:32 Course Vital Signs Vital signs: Vital Signs Temperature 97.9 F 01/24/24 15:32 Pulse Rate 84 01/24/24 15:32 Respiratory Rate 20 01/24/24 15:32 Blood Pressure 121/76 01/24/24 15:32 Pulse Oximetry 96 01/24/24 15:32 Oxygen Delivery Method Room Air 01/24/24 15:32 Temperature 97.9 F 01/24/24 15:32 Pulse Rate 82 01/24/24 17:48 Respiratory Rate 24 H 01/24/24 17:48 Blood Pressure 144/59 H 01/24/24 17:48 Pulse Oximetry 97 01/24/24 17:48 Oxygen Delivery Method Room Air 01/24/24 15:32 Medical Decision Making Differential Diagnosis Differential Diagnosis: Pleural effusion, ascites, cancer, anemia Medical Records Medical records reviewed: Yes I reviewed the patient's medical records Lab Data Lab results reviewed: Yes I reviewed the patient's lab results Labs: Lab Results 01/24/24 Range/Units 15:44 WBC 7.2 (4.0-11.0) 10^3/uL RBC 3.10 L (4.70-6.10) 10^6/uL Hgb 11.6 L (14.0-18.0) g/dL Hct 33.2 L (42.0-54.0) % MCV 107.1 H (80.0-94.0) fL MCH 37.4 H (25.9-34.0) pg MCHC 34.9 (29.9-35.2) g/dL RDW 15.4 H (11.0-15.0) % Plt Count 87 L (150-450) 10^3/uL MPV 8.7 L (9.5-13.5) fL Neut % (Auto) 63.8 (43.0-75.0) % Lymph % (Auto) 15.6 L (20.5-60.0) % [place] % (Auto) 12.3 H (1.7-12.0) % Eos % (Auto) 5.3 (0.9-7.0) % Baso % (Auto) 2.0 (0.2-2.0) % Neut # (Auto) 4.6 (1.4-6.5) 10^3/uL Lymph # (Auto) 1.1 L (1.2-3.8) 10^3/uL [place] # (Auto) 0.9 H (0.3-0.8) 10^3/uL Eos # (Auto) 0.4 (0.0-0.7) 10^3/uL Baso # (Auto) 0.1 (0.0-0.1) 10^3/uL Abs Immat Gran (auto) 0.07 H (0.00-0.03) 10^3/uL Imm/Tot Granulo (auto) 1.0 H (0.0-0.5) % PT 14.2 H (9.0-11.6) sec INR 1.38 Sodium 131 L (136-145) mmol/L Potassium 3.8 (3.5-5.1) mmol/L Chloride 101 (98-107) mmol/L Carbon Dioxide 20.5 L (21.0-32.0) mmol/L Anion Gap 13.3 BUN 26.0 H (7.0-18.0) mg/dL Creatinine 1.43 H (0.70-1.30) mg/dL Est GFR ( Amer) >60 (>=60 mL/min/1.73m^2) Est GFR (Non-Af Amer) 51 L (>=60 mL/min/1.73m^2) BUN/Creatinine Ratio 18.2 Glucose 117 H (74-106) mg/dL Calcium 9.0 (8.5-10.1) mg/dL Total Bilirubin 5.5 H (0.2-1.0) mg/dL AST 57 H (15-37) U/L ALT 39 (16-63) U/L Alkaline Phosphatase 227 H (46-116) U/L Troponin I High Sens 4.7 (4.0-76.1) pg/mL NT-Pro-B Natriuret Pep 294.0 (<=900.0) pg/mL Total Protein 6.8 (6.4-8.2) g/dL Albumin 2.5 L (3.4-5.0) g/dL Globulin 4.3 g/dL Albumin/Globulin Ratio 0.6 Imaging Data Chest x-ray: Radiologist's impression: ITS Impressions Chest X-Ray 01/24/24 16:17 IMPRESSION: 1. Suspect large right pleural effusion and associated atelectasis. A mass within the right hemithorax cannot be excluded. Findings are new compared to 09/19/2023. Electronically authenticated by: BENITA TOLBERT Date: 01/24/2024 16:28 Abdomen/Pelvis CT 01/24/24 17:00 IMPRESSION: 1. Cirrhotic liver with moderate to large ascites. 2. Splenomegaly. 3. Anasarca. Electronically authenticated by: NATI DE LA TORRE Date: 01/24/2024 17:[address] 01/24/24 17:00 IMPRESSION: Large right pleural effusion with almost complete collapse of right lung and small right upper lobe aeration. Small left pleural effusion and left basilar atelectasis. Electronically authenticated by: MARIA ESTHER DALEY Date: 01/24/2024 17:52 ECG Data Attestation: I personally reviewed and interpreted this ECG as follows: Interpretation: EKG INTERPRETATION Time: []1540 Rate: []75 Rhythm: _ []Sinus rhythm with irregularity PACs ST segments: _ [] T waves: _ [] Ectopy: _ [] P wave/WI interval: _ [] QRS interval: _ [] QT interval: _ [] Comparison: _ [] Comparison EKG date: [] Performed by: [self] Discharge Plan Discharge Chief Complaint: Shortness of Breath/Dyspnea Prescriptions / Home Meds: No Action lactulose 10 gram/15 mL solution 10 g PO DAILY metformin 500 mg tablet 500 mg PO DAILY cholecalciferol (vitamin D3) 1,250 mcg (50,000 unit) capsule 50,000 unit PO QWEEK Patient Comments: on furosemide 40 mg tablet 40 mg PO DAILY melatonin 3 mg tablet 3 mg PO DAILY PRN (Reason: sleep) polyethylene glycol 3350 17 gram powder in packet 17 g PO DAILY Print Language: Kyrgyz Referrals: Physician,Non-Staff, MD [Primary Care Provider] - 1 week
[2024-01-24 15:52] LABS: Basophils Absolute Auto 0.1 10^3/uL (0.0-0.1); Eosinophils Absolute Auto 0.4 10^3/uL (0.0-0.7); Eosinophils Percent Auto 5.3 % (0.9-7.0); Hematocrit 33.2 % (42.0-54.0); Hemoglobin 11.6 g/dL (14.0-18.0); Immature Granulocytes Abs Auto 0.07 10^3/uL (0.00-0.03); Lymphocytes Absolute Auto 1.1 10^3/uL (1.2-3.8); Lymphocytes Percent Auto 15.6 % (20.5-60.0); Mean Corpuscular HGB Conc 34.9 g/dL (29.9-35.2); Mean Corpuscular Hemoglobin 37.4 pg (25.9-34.0); Mean Corpuscular Volume 107.1 fL (80.0-94.0); Mean Platelet Volume 8.7 fL (9.5-13.5); Monocytes Absolute Auto 0.9 10^3/uL (0.3-0.8); Monocytes Percent Auto 12.3 % (1.7-12.0); Neutrophils Absolute Auto 4.6 10^3/uL (1.4-6.5); Neutrophils Percent Auto 63.8 % (43.0-75.0); Platelet Count 87 10^3/uL (150-450); Red Cell Distribution Width 15.4 % (11.0-15.0); White Blood Count 7.2 10^3/uL (4.0-11.0)
[2024-01-24 16:05] LABS: INR 1.38; Prothrombin Time 14.2 sec (9.0-11.6)
--- NOTE | 2024-01-24 16:17 | XR_ITS ---
The [address] [address] Patient Name: LAURITA BUSTAMANTE MRN: [id number] date: 1965 Sex: M Assigned Patient Location: ER Current Patient Location: ER Accession/Order Number: [id number] Exam Date: 01/24/2024 16:10 Report Date: 01/24/2024 16:28 At the request of: MARLA DARLING Procedure: XR chest 2V EXAMINATION: XR chest 2V HISTORY: sob COMPARISON: XR chest 09/19/2023 FINDINGS: LUNGS: Opacification of the mid and lower right hemithorax secondary to large pleural effusion. Small amount of aerated lung within right lung apex. Underexpanded but grossly clear left lung. VASCULATURE: No increased pulmonary vasculature. PLEURA: No pneumothorax, effusion, or pleural thickening. CARDIAC: Obscured. MEDIASTINUM: No visible mass or adenopathy. BONES: No fracture or visible bone lesion. OTHER: Negative. XR/XR chest 2V IMPRESSION: 1. Suspect large right pleural effusion and associated atelectasis. A mass within the right hemithorax cannot be excluded. Findings are new compared to 09/19/2023. Electronically authenticated by: BENITA TOLBERT Date: 01/24/2024 16:28
[2024-01-24 16:19] LABS: Alanine Aminotransferase 39 U/L (16-63); Albumin Globulin Ratio 0.6; Albumin Level 2.5 g/dL (3.4-5.0); Alkaline Phosphatase 227 U/L (46-116); Anion Gap 13.3; Aspartate Amino Transferase 57 U/L (15-37); BUN Creatinine Ratio 18.2; Bilirubin Total 5.5 mg/dL (0.2-1.0); Carbon Dioxide 20.5 mmol/L (21.0-32.0); Chloride 101 mmol/L (98-107); Estimated GFR (African America >60 (>=60 mL/min/1.73m^2); Estimated GFR (Non-African Ame 51 (>=60 mL/min/1.73m^2); Globulin 4.3 g/dL; Glucose 117 mg/dL (74-106); Potassium 3.8 mmol/L (3.5-5.1); Sodium 131 mmol/L (136-145); Total Protein 6.8 g/dL (6.4-8.2); Troponin I High Sensitivity 4.7 pg/mL (4.0-76.1)
--- NOTE | 2024-01-24 17:00 | CT_ITS ---
The [address] [address] Patient Name: LAURITA BUSTAMANTE MRN: [id number] date: 1965 Sex: M Assigned Patient Location: ER Current Patient Location: ER Accession/Order Number: [id number] Exam Date: 01/24/2024 16:51 Report Date: 01/24/2024 17:48 At the request of: MARLA DARLING Procedure: CT abdomen pelvis wo con CT ABDOMEN/PELVIS WITHOUT IV CONTRAST. INDICATION: pain COMPARISON: There are no other studies available for comparison. TECHNIQUE: Contiguous axial images were obtained from the lung bases to the pelvic floor without intravenous or oral contrast. Coronal and sagittal reformations are provided. FINDINGS: Somewhat limited evaluation due to motion. LOWER LUNGS: Refer to CT chest report. LIVER/BILIARY TREE: No discrete lesion. No intrahepatic ductal dilatation. Cirrhotic liver. GALLBLADDER: No significant gallbladder wall thickening. No radiopaque stone. CBD: Normal CBD. SPLEEN: Splenomegaly. PANCREAS: No appreciable peripancreatic fluid. No pancreatic ductal dilatation. No discrete lesion. ADRENALS: Normal. KIDNEYS: No hydronephrosis. No radiopaque calculus. STOMACH AND BOWEL: Stomach is unremarkable. No dilated bowel loops. No bowel wall thickening. APPENDIX: Normal appendix. PERITONEAL CAVITY: Moderate to large ascites . ABDOMINAL WALL: Anasarca. LYMPH NODES: No mesenteric or retroperitoneal lymphadenopathy by CT criteria. ABDOMINAL AORTA: No aneurysm. PELVIS: No acute abnormality. MUSCULOSKELETAL: No acute osseous abnormality. CT/CT abdomen pelvis wo con IMPRESSION: 1. Cirrhotic liver with moderate to large ascites. 2. Splenomegaly. 3. Anasarca. Electronically authenticated by: NATI DE LA TORRE Date: 01/24/2024 17:48
--- NOTE | 2024-01-24 17:00 | CT_ITS ---
The [address] [address] Patient Name: LAURITA BUSTAMANTE MRN: [id number] date: 1965 Sex: M Assigned Patient Location: ER Current Patient Location: ER Accession/Order Number: [id number] Exam Date: 01/24/2024 16:51 Report Date: 01/24/2024 17:52 At the request of: MARLA DARLING Procedure: CT chest wo con EXAM: CT chest wo con HISTORY: effusion COMPARISON: None. TECHNIQUE: Axial CT imaging was performed through the chest without intravenous contrast. Multiplanar reformats were performed. Dose reduction techniques were achieved by using automated exposure control and/or adjustment of mA and/or kV according to patient size and/or use of iterative reconstruction technique. FINDINGS: Lungs: No pneumothorax. Large right and small left pleural effusions with almost complete collapse of right lung with small right upper lobe aeration. There is shift of mediastinum toward the left. There is left basilar atelectasis. Airways: Normal. Mediastinum: No adenopathy. Aorta: No aneurysm. Cardiac: Normal size. No pericardial effusion. Coronary Arteries: Coronary calcifications are absent. Pulmonary vasculature: Normal morphology. Bones: No acute bony abnormality. Axilla: No adenopathy. Thyroid gland: No abnormality demonstrated on provided imaging. Soft tissues: Unremarkable. Upper abdomen: Unremarkable. Other findings: None. CT/CT chest wo con IMPRESSION: Large right pleural effusion with almost complete collapse of right lung and small right upper lobe aeration. Small left pleural effusion and left basilar atelectasis. Electronically authenticated by: MARIA ESTHER DALEY Date: 01/24/2024 17:52
--- NOTE | 2024-01-24 19:15 | ED.GENADUL1 ---
HPI HPI - General Adult General Chief complaint: Shortness of Breath/Dyspnea Stated complaint: Chest Pain, Congestion Time Seen by Provider: 01/24/24 15:30 Source: patient Mode of arrival: Wheelchair Limitations: no limitations History of Present Illness HPI narrative: This 58-year-old male with a history of nonalcoholic hepatitis presents for evaluation of shortness of breath. He was signed out to me at shift change pending transfer arrangements. He was diagnosed with ascites and a pleural effusion. Patient was seen and evaluated. He is having some shortness of breath with conversational dyspnea. He does have some mild expiratory wheezing. He will be given a DuoNeb treatment and 40 mg of IV Lasix. We do not have the capabilities for pleurocentesis or paracentesis at this facility at this time. The case was discussed with Dr. Newman and he is accepted for transfer to [facility]. Related Data Home Medications ?Medication ?Instructions ?Recorded ?Confirmed metformin 500 mg tablet 500 mg PO DAILY 08/13/23 01/24/24 cholecalciferol (vitamin D3) 1,250 50,000 unit PO QWEEK 09/18/23 01/24/24 mcg (50,000 unit) capsule furosemide 40 mg tablet 40 mg PO DAILY 09/18/23 01/24/24 melatonin 3 mg tablet 3 mg PO DAILY PRN sleep 09/18/23 01/24/24 polyethylene glycol 3350 17 gram 17 g PO DAILY 09/19/23 01/24/24 oral powder packet lactulose 10 gram/15 mL oral 10 g PO DAILY 01/24/24 01/24/24 solution Allergies Allergy/AdvReac Type Severity Reaction Status Date / Time Penicillins AdvReac Mild Hives Verified 01/24/24 15:42 Opioid HPI Opioid Management Most Recent Opioid Data: Last Pain Scale 9 09/19/23 20:36 Last ORT Total Score 0 09/19/23 01:25 Last ORT Risk Category Low Risk 09/19/23 01:25 PFSH [facility] Medical History (Updated 01/24/24 @ 19:18 by Briana Main MD) Type 2 diabetes mellitus ?E11.9 - Type 2 diabetes mellitus without complications (ICD-10) Hyperlipidemia ?E78.5 - Hyperlipidemia, unspecified (ICD-10) DVT (deep venous thrombosis) ?I82.409 - Acute embolism and thrombosis of unspecified deep veins of unspecified lower extremity (ICD-10) 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 alcohol ?K74.60 - Unspecified cirrhosis of liver (ICD-10) Social History Highest level of school completed/degree received: high school graduate Little interest or pleasure in doing things: not at all Feeling down, depressed, or hopeless: not at all Do you think of yourself as: straight/heterosexual Gender Identity: male Exam Constitutional Vital Signs, click to edit/add: Last Vital Signs Temp 97.9 F 01/24/24 15:32 Pulse 85 01/24/24 18:30 Resp 19 01/24/24 18:30 BP 114/65 01/24/24 18:30 Pulse Ox 99 01/24/24 18:30 O2 Del Method Room Air 01/24/24 15:32 Course Vital Signs Vital signs: Vital Signs Temperature 97.9 F 01/24/24 15:32 Pulse Rate 84 01/24/24 15:32 Respiratory Rate 20 01/24/24 15:32 Blood Pressure 121/76 01/24/24 15:32 Pulse Oximetry 96 01/24/24 15:32 Oxygen Delivery Method Room Air 01/24/24 15:32 Temperature 97.9 F 01/24/24 15:32 Pulse Rate 85 01/24/24 18:30 Respiratory Rate 19 01/24/24 18:30 Blood Pressure 114/65 01/24/24 18:30 Pulse Oximetry 99 01/24/24 18:30 Oxygen Delivery Method Room Air 01/24/24 15:32 Medical Decision Making Lab Data Labs: Lab Results 01/24/24 Range/Units 15:44 WBC 7.2 (4.0-11.0) 10^3/uL RBC 3.10 L (4.70-6.10) 10^6/uL Hgb 11.6 L (14.0-18.0) g/dL Hct 33.2 L (42.0-54.0) % MCV 107.1 H (80.0-94.0) fL MCH 37.4 H (25.9-34.0) pg MCHC 34.9 (29.9-35.2) g/dL RDW 15.4 H (11.0-15.0) % Plt Count 87 L (150-450) 10^3/uL MPV 8.7 L (9.5-13.5) fL Neut % (Auto) 63.8 (43.0-75.0) % Lymph % (Auto) 15.6 L (20.5-60.0) % Vil[place] % (Auto) 12.3 H (1.7-12.0) % Eos % (Auto) 5.3 (0.9-7.0) % Baso % (Auto) 2.0 (0.2-2.0) % Neut # (Auto) 4.6 (1.4-6.5) 10^3/uL Lymph # (Auto) 1.1 L (1.2-3.8) 10^3/uL [place] # (Auto) 0.9 H (0.3-0.8) 10^3/uL Eos # (Auto) 0.4 (0.0-0.7) 10^3/uL Baso # (Auto) 0.1 (0.0-0.1) 10^3/uL Abs Immat Gran (auto) 0.07 H (0.00-0.03) 10^3/uL Imm/Tot Granulo (auto) 1.0 H (0.0-0.5) % PT 14.2 H (9.0-11.6) sec INR 1.38 Sodium 131 L (136-145) mmol/L Potassium 3.8 (3.5-5.1) mmol/L Chloride 101 (98-107) mmol/L Carbon Dioxide 20.5 L (21.0-32.0) mmol/L Anion Gap 13.3 BUN 26.0 H (7.0-18.0) mg/dL Creatinine 1.43 H (0.70-1.30) mg/dL Est GFR ( Amer) >60 (>=60 mL/min/1.73m^2) Est GFR (Non-Af Amer) 51 L (>=60 mL/min/1.73m^2) BUN/Creatinine Ratio 18.2 Glucose 117 H (74-106) mg/dL Calcium 9.0 (8.5-10.1) mg/dL Total Bilirubin 5.5 H (0.2-1.0) mg/dL AST 57 H (15-37) U/L ALT 39 (16-63) U/L Alkaline Phosphatase 227 H (46-116) U/L Troponin I High Sens 4.7 (4.0-76.1) pg/mL NT-Pro-B Natriuret Pep 294.0 (<=900.0) pg/mL Total Protein 6.8 (6.4-8.2) g/dL Albumin 2.5 L (3.4-5.0) g/dL Globulin 4.3 g/dL Albumin/Globulin Ratio 0.6 Discharge Plan Discharge Chief Complaint: Shortness of Breath/Dyspnea Clinical Impression: Anasarca, Pleural effusion associated with hepatic disorder Patient Disposition: [facility] Time of Disposition Decision: 19:17 Discharge Location: [facility] Condition: Fair Prescriptions / Home Meds: No Action lactulose 10 gram/15 mL solution 10 g PO DAILY metformin 500 mg tablet 500 mg PO DAILY cholecalciferol (vitamin D3) 1,250 mcg (50,000 unit) capsule 50,000 unit PO QWEEK Patient Comments: on furosemide 40 mg tablet 40 mg PO DAILY melatonin 3 mg tablet 3 mg PO DAILY PRN (Reason: sleep) polyethylene glycol 3350 17 gram powder in packet 17 g PO DAILY Print Language: Cook Islander Referrals: Physician,Non-Staff, MD [Primary Care Provider] - 1 week
[2024-01-24] MEDS: FUROSEMIDE 40 MG/4 ML VIAL IVP (19:19)
[2024-01-24] MEDS: IPRATROPIUM/ALBUTEROL SULFATE 3 ML AMPUL.NEB IH (19:24)
--- NOTE | 2024-01-24 22:29 | PC.NURSE ---
[facility] arrives at this time for transport.
== END 2024-01-24 22:38 | disposition short-term general hospital (02) ==
PROVIDERS: Emergency Medicine; Emergency Provider Emergency Medicine
DX: R18.8 Other ascites (principal); J91.8 Pleural effusion in other conditions classified elsewhere; K75.9 Inflammatory liver disease, unspecified; Z76.82 Awaiting organ transplant status
CPT/HCPCS: 36415; 71046; 71250; 74176; 80053; 83880; 84484; 85025; 85610; 93005; 94640; 96374; 99285; J1940

== ENCOUNTER 2024-08-02 13:07 | Outpatient (OUT) | payer OTHER, SELFPAY ==
[2024-08-02 13:58] LABS: Hematocrit 34.4 % (42.0-54.0); Hemoglobin 11.6 g/dL (14.0-18.0); Mean Corpuscular HGB Conc 33.7 g/dL (29.9-35.2); Mean Platelet Volume 9.4 fL (9.5-13.5); Platelet Count 157 10^3/uL (150-450); Red Blood Count 3.74 10^6/uL (4.70-6.10); Red Cell Distribution Width 13.2 % (11.0-15.0); White Blood Count 6.9 10^3/uL (4.0-11.0)
[2024-08-02 14:14] LABS: Alanine Aminotransferase 26 U/L (16-63); Albumin Globulin Ratio 1.4; Albumin Level 3.5 g/dL (3.4-5.0); Alkaline Phosphatase 180 U/L (46-116); Anion Gap 12.1; Aspartate Amino Transferase 11 U/L (15-37); BUN Creatinine Ratio 20.5; Bilirubin Direct 0.1 mg/dL (0.0-0.2); Bilirubin Total 0.4 mg/dL (0.2-1.0); Calcium 8.7 mg/dL (8.5-10.1); Carbon Dioxide 26.2 mmol/L (21.0-32.0); Chloride 106 mmol/L (98-107); Estimated GFR (African America 49 (>=60 mL/min/1.73m^2); Estimated GFR (Non-African Ame 40 (>=60 mL/min/1.73m^2); Gamma Glutamyl Transpeptidase 22 U/L (15-85); Globulin 2.5 g/dL; Glucose 104 mg/dL (74-106); Magnesium 1.5 mg/dL (1.8-2.4); Potassium 4.3 mmol/L (3.5-5.1); Sodium 140 mmol/L (136-145)
[2024-08-02 14:26] LABS: Basophils Abs Manual 0.13 10^3/uL (0.00-0.10); Eosinophils Absolute Manual 0.27 10^3/uL (0.00-0.70); Lymphocytes Absolute Manual 1.51 10^3/uL (1.20-3.80); Monocytes Absolute Manual 0.34 10^3/uL (0.30-0.80); Segmented Neut Absolute Manual 4.62 10^3/uL (1.4-6.5)
[2024-08-06 15:08] LABS: Tacrolimus (FK506), Blood 23.2 ng/mL (5.0-20.0)
== END 2024-08-02 13:08 | disposition home or self-care (01) ==
DX: D84.9 Immunodeficiency, unspecified (principal); Z94.4 Liver transplant status
CPT/HCPCS: 36415; 80048; 80076; 80197; 82977; 83735; 85007; 85027